=== PATIENT | female | born 1950 | race African-American/Black ===

== ENCOUNTER → 2017-08-16 | Outpatient (CLI) | payer MEDICARE ==
[2017-08-16 09:57] LABS: ABSOLUTE BASOPHILS # (AUTO) 0.1 10^3/uL (0.0-0.2); ABSOLUTE LYMPHOCYTES (AUTO) 1.4 10^3/uL (0.5-4.7); ABSOLUTE MONOCYTES (AUTO) 1.1 10^3/uL (0.1-1.4); ABSOLUTE NEUT (AUTO) 9.1 10^3/uL (1.7-8.2); BASOPHILS % (AUTO) 0.7 % (0-2); EOSINOPHILS % (AUTO) 0.4 % (0-6); HEMATOCRIT 26.8 % (36.0-47.0); HEMOGLOBIN 8.8 g/dL (12.0-15.5); LYMPHOCYTES % (AUTO) 12.2 % (13-45); MEAN CORPUSCULAR HEMOGLOBIN 26.2 pg (27.0-33.4); MEAN CORPUSCULAR HGB CONC 32.9 g/dL (32.0-36.0); MEAN CORPUSCULAR VOLUME 80 fl (80-97); MONOCYTES % (AUTO) 9.4 % (3-13); PLATELET COUNT 705 10^3/uL (150-450); RED BLOOD COUNT 3.36 10^6/uL (3.72-5.28); RED CELL DISTRIBUTION WIDTH 15.3 % (11.5-14.0); SEGMENTED NEUTROPHILS % (AUTO) 77.3 % (42-78); TOTAL CELLS COUNTED % (AUTO) 100 %; WHITE BLOOD COUNT 11.8 10^3/uL (4.0-10.5)
[2017-08-16 10:23] LABS: ALANINE AMINOTRANSFERASE 18 U/L (9-52); ALKALINE PHOSPHATASE 177 U/L (38-126); ANION GAP 11 (5-19); ASPARTATE AMINO TRANSFERASE 23 U/L (14-36); BILIRUBIN,DIRECT 0.4 mg/dL (0.0-0.4); BILIRUBIN,TOTAL 0.5 mg/dL (0.2-1.3); BLOOD UREA NITROGEN 27 mg/dL (7-20); CALCIUM 8.8 mg/dL (8.4-10.2); CARBON DIOXIDE 24 mmol/L (22-30); CHLORIDE 102 mmol/L (98-107); CHOLESTEROL 136.57 mg/dL (0-200); GLUCOSE 107 mg/dL (75-110); POTASSIUM 4.4 mmol/L (3.6-5.0); SODIUM 137.4 mmol/L (137-145); TOTAL PROTEIN 6.4 g/dL (6.3-8.2); TRIGLYCERIDES 180 mg/dL (<150)
[2017-08-16 10:34] LABS: DIRECT LDL 53 mg/dL (<100)
== END ==
LOC: OD 09:20
PROVIDERS: ATTEND Internal Medicine
DX: I10 Essential (primary) hypertension (principal); E78.00 Pure hypercholesterolemia, unspecified; Z79.899 Other long term (current) drug therapy
CPT/HCPCS: 36415; 80053; 80061; 85025

== ENCOUNTER → 2017-08-20 | Outpatient (CLI) | payer MEDICARE, OTHER ==
--- NOTE | 2017-08-21 09:00 | WOMENS IMAGING REPORT ---
EXAM DESCRIPTION: 3D DX MAMMO RIGHT UNILAT; U/S BREAST UNILAT LIMITED COMPLETED DATE/TIME: 08/20/2017 8:57 am; 08/20/2017 9:49 am REASON FOR STUDY: LEFT BREAST CANCER; RT BREAST NODULE N63.11 C50.912 MALIGNANT NEOPLASM OF UNSPEC IFIED SITE OF LEFT FEMAL COMPARISON: None. TECHNIQUE: Standard craniocaudal and mediolateral oblique images of the right breast recorded using digital acquisition and breast tomosynthesis. Right breast ultrasound was also performed. Left breast imaging was deferred by the referring surgeon who has already performed a left breast bio psy, yielding a diagnosis of malignancy. LIMITATIONS: None. FINDINGS: BREAST: Right MASSES: In the far upper outer quadrant right breast, a mammographic nodule is present adjacent to an upper outer quadrant artery. This measures about 8 mm in diameter with irregular margins. CALCIFICATIONS: No new or suspicious calcifications. ARCHITECTURAL DISTORTION: None. DEVELOPING DENSITY: None. ASYMMETRY: None noted. OTHER: No other significant findings. Read with the assistance of CAD. .[facility] - R2 Cenova Version 1.3 .[facility] - R2 Cenova Version 1.3 .[facility] - R2 Cenova Version 2.4 .[facility] - R2 Cenova Version 2.4 .COUNT INCLUDES THE [facility] - R2 Inspector Chief Version 9.2 Right breast ultrasound: Ultrasound of the right breast upper outer quadrant, 10 cm from the nipple in the area of mammographi c findings demonstrates a small solid nodule with irregular borders, mild acoustic absorption and int ernal color flow measuring about 9 mm in diameter. This is worrisome for malignancy. Ultrasound-zuleima ded core biopsy should be considered. IMPRESSION: 8 to 9 mm solid nodule far upper outer quadrant right breast worrisome for malignancy. Ultrasound-guided core biopsy should be considered. BREAST DENSITY: c. The breasts are heterogeneously dense, which may obscure small masses. BIRAD: 4 Suspicious. Biopsy should be considered. RECOMMENDATION: RECOMMENDED FOLLOW UP: Consider ultrasound-guided core biopsy with post biopsy clip placement and follow-up two-view mammogram SPECIFIC INTERVENTION/IMAGING/CONSULTATION RECOMMENDED:As above COMMUNICATION:Ordering physician notified of these findings COMMENT: The patient has been notified of the results by letter per MQSA requirements. Additional no tification policies are in place for contacting patient with suspicious or incomplete findings. Quality ID #[id number]: The [employer] recommends an annual screening mammogram for women aged 40 years or over. This facility utilizes a reminder system to ensure that all patients receive reminder letters, and/or direct phone calls for appointments. This includes reminders for routine scr eening mammograms, diagnostic mammograms, or other Breast Imaging Interventions when appropriate. Th is patient will be placed in the appropriate reminder system. The [employer] (ACR) has developed recommendations for screening MRI of the breast s in certain patient populations, to be used in conjunction with mammography. Breast MRI surveillanc e may be appropriate for women with more than 20% lifetime risk of developing breast cancer as deter mined by genetic testing, significant family history of the disease, or history of mantle radiation f or Hodgkins Disease. ACR Practice Guidelines 2008. DBT Technology DBT is a type of tomographic mammography. With conventional mammography, overlapping breast tissue ma y make lesions difficult to detect, even with good compression. DBT uses an x-ray tube that rotates a round the breast, taking images at different angles. These images are then combined to create thin sl ices of the breast that the radiologist can view as a 3D reconstruction. The Eviti unit can perform full-field digital mammograms (2D imaging); or DBT (3D imaging); or both, in a combination mode that quickly performs both the mammogram and the tomosynthesis scan while the breast is still compressed. PQRS 6045F: Fluoroscopic imaging is not utilized for breast tomosynthesis. TECHNICAL DOCUMENTATION: FINDING NUMBER: (1) ASSESSMENT: (1) JOB ID: [id number] [employer]- All Rights Reserved Reading location - IP/workstation name: [email or web address]-COUNT INCLUDES THE [facility]-RR
--- NOTE | 2017-08-21 09:00 | WOMENS IMAGING REPORT ---
EXAM DESCRIPTION: 3D DX MAMMO RIGHT UNILAT; U/S BREAST UNILAT LIMITED COMPLETED DATE/TIME: 08/20/2017 8:57 am; 08/20/2017 9:49 am REASON FOR STUDY: LEFT BREAST CANCER; RT BREAST NODULE N63.11 C50.912 MALIGNANT NEOPLASM OF UNSPEC IFIED SITE OF LEFT FEMAL COMPARISON: None. TECHNIQUE: Standard craniocaudal and mediolateral oblique images of the right breast recorded using digital acquisition and breast tomosynthesis. Right breast ultrasound was also performed. Left breast imaging was deferred by the referring surgeon who has already performed a left breast bio psy, yielding a diagnosis of malignancy. LIMITATIONS: None. FINDINGS: BREAST: Right MASSES: In the far upper outer quadrant right breast, a mammographic nodule is present adjacent to an upper outer quadrant artery. This measures about 8 mm in diameter with irregular margins. CALCIFICATIONS: No new or suspicious calcifications. ARCHITECTURAL DISTORTION: None. DEVELOPING DENSITY: None. ASYMMETRY: None noted. OTHER: No other significant findings. Read with the assistance of CAD. .[facility] - R2 Cenova Version 1.3 .[facility] Imaging - R2 Cenova Version 1.3 .[facility] - R2 Cenova Version 2.4 .[facility] - R2 Cenova Version 2.4 .[facility] - R2 Fashion Model Version 9.2 Right breast ultrasound: Ultrasound of the right breast upper outer quadrant, 10 cm from the nipple in the area of mammographi c findings demonstrates a small solid nodule with irregular borders, mild acoustic absorption and int ernal color flow measuring about 9 mm in diameter. This is worrisome for malignancy. Ultrasound-zuleima ded core biopsy should be considered. IMPRESSION: 8 to 9 mm solid nodule far upper outer quadrant right breast worrisome for malignancy. Ultrasound-guided core biopsy should be considered. BREAST DENSITY: c. The breasts are heterogeneously dense, which may obscure small masses. BIRAD: 4 Suspicious. Biopsy should be considered. RECOMMENDATION: RECOMMENDED FOLLOW UP: Consider ultrasound-guided core biopsy with post biopsy clip placement and follow-up two-view mammogram SPECIFIC INTERVENTION/IMAGING/CONSULTATION RECOMMENDED:As above COMMUNICATION:Ordering physician notified of these findings COMMENT: The patient has been notified of the results by letter per MQSA requirements. Additional no tification policies are in place for contacting patient with suspicious or incomplete findings. Quality ID #[id number]: The [employer] recommends an annual screening mammogram for women aged 40 years or over. This facility utilizes a reminder system to ensure that all patients receive reminder letters, and/or direct phone calls for appointments. This includes reminders for routine scr eening mammograms, diagnostic mammograms, or other Breast Imaging Interventions when appropriate. Th is patient will be placed in the appropriate reminder system. The [employer] (ACR) has developed recommendations for screening MRI of the breast s in certain patient populations, to be used in conjunction with mammography. Breast MRI surveillanc e may be appropriate for women with more than 20% lifetime risk of developing breast cancer as deter mined by genetic testing, significant family history of the disease, or history of mantle radiation f or Hodgkins Disease. ACR Practice Guidelines 2008. DBT Technology DBT is a type of tomographic mammography. With conventional mammography, overlapping breast tissue ma y make lesions difficult to detect, even with good compression. DBT uses an x-ray tube that rotates a round the breast, taking images at different angles. These images are then combined to create thin sl ices of the breast that the radiologist can view as a 3D reconstruction. The Fo[employer] unit can perform full-field digital mammograms (2D imaging); or DBT (3D imaging); or both, in a combination mode that quickly performs both the mammogram and the tomosynthesis scan while the breast is still compressed. PQRS 6045F: Fluoroscopic imaging is not utilized for breast tomosynthesis. TECHNICAL DOCUMENTATION: FINDING NUMBER: (1) ASSESSMENT: (1) JOB ID: [id number] [employer]- All Rights Reserved Reading location - IP/workstation name: [facility]-RR
== END ==
LOC: WI 08:25
PROVIDERS: ATTEND Surgery
DX: C50.912 Malignant neoplasm of unspecified site of left female breast (principal); N63.11 Unspecified lump in the right breast, upper outer quadrant
CPT/HCPCS: 88342 ×2; 88341 ×2; 88305 ×2; 76642; 77065; G0279

== ENCOUNTER 2017-08-30 13:30 | Inpatient (IN) | payer MEDICARE ==
[2017-08-30] MEDS ORDERED: ACETAMINOPHEN 325 MG TABLET PO ONE (13:55)
[2017-08-30] MEDS ORDERED: NORMAL SALINE 1000 ML 1,000 ML IV ONE (13:55)
[2017-08-30] MEDS ORDERED: PIPERACILLIN/TAZOBACTAM 4.5 GM VIAL IV ONE (13:55)
--- NOTE | 2017-08-30 14:26 | ER Document Report ---
ED Medical Screen (RME) - General Chief Complaint: Nausea/Vomiting Stated Complaint: POSSIBLE NAUSEA/ DIZZINESS Time Seen by Provider: 08/30/17 13:54 TRAVEL OUTSIDE OF THE [place] IN LAST 30 DAYS: No - HPI Patient complains to provider of: Generalized weakness, nausea and vomiting Notes: 08/30/17 14:25 Patient is a 66-year-old female presenting to the emergency room with family members for generalized weakness with nausea and vomiting, she is noted to be pale, diaphoretic and hypotensive in triage area, with strong infectious odor, therefore patient was taken immediately to a bed in the main emergency department RAPID MEDICAL EVALUATION DISCLOSURE I have seen this patient as part of a Rapid Medical Evaluation and, if applicable, placed any initially appropriate orders. The patient will be seen and fully evaluated, including a full history and physical exam, by a provider ( in Main ED or Fast Track) when a room becomes available. - Related Data Allergies/Adverse Reactions: almond Allergy (Verified 08/30/17 13:34) cashew nut Allergy (Verified 08/30/17 13:34) Past Medical History - Social History Chew tobacco use (# tins/day): No Drug Abuse: None Renal/ Medical History: Denies: Hx Peritoneal Dialysis Physical Exam - Vital signs Vitals: Resp Pulse Ox 20 94 08/30/17 14:06 08/30/17 14:06 Course - Vital Signs Vital signs: Temp Pulse Resp BP Pulse Ox 25 H 98/67 L 94 08/30/17 14:12 08/30/17 14:12 08/30/17 14:12 - Laboratory Result Diagrams: 08/30/17 14:08 08/30/17 14:08 Doctor's Discharge - Discharge Referrals: INDRA DENNY MD [Primary Care Provider] - Follow up as needed
[2017-08-30 14:41] LABS: VENOUS BLOOD HCO3 23.2 mmol/L (20-32); VENOUS BLOOD PCO2 42.1 mmHg (35-63); VENOUS BLOOD PH 7.36 (7.30-7.42)
[2017-08-30 14:46] LABS: INTERNATIONAL RATION (INR) 1.46; PROTHROMBIN TIME 18.4 SEC (11.4-15.4)
--- NOTE | 2017-08-30 14:47 | ER Document Report ---
ED General - General Chief Complaint: Nausea/Vomiting Stated Complaint: POSSIBLE NAUSEA/ DIZZINESS Time Seen by Provider: 08/30/17 13:54 TRAVEL OUTSIDE OF THE [place] 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 She reports landing on her left side. She states she slowly lowered herself to the ground. She has no hip or buttock pain. She was assisted up by her family and neighbor. She has had nausea, decreased appetite, constipation, and abdominal pain for the past several days. She vomits every couple of days for the past few weeks. She thinks abdominal pain worsened yesterday after drinking a banana shake with almonds. Last bowel movement about 1 week ago. She reports an allergy to almonds, but did not know that that it contained almonds. She has had no fever, but has had chills. She has not yet started chemotherapy or radiation. She is still in the staging process. Unknown if she has any metastases. She admits to ignoring the left breast deformity for several months prior to seeking treatment. She now has a necrotic left breast mass and has been to the wound care clinic twice. She also reports a decubitus ulcer. Denies any blood loss in the stools. She has a history of hypertension and was recently told to have her blood pressure medication. Initial blood pressure upon triage was 74/58 and then again 73/51 with a heart rate of 130. - Related Data Allergies/Adverse Reactions: almond Allergy (Verified 08/30/17 13:34) cashew nut Allergy (Verified 08/30/17 13:34) Past Medical History - Social History Smoking Status: Never Smoker Chew tobacco use (# tins/day): No Drug Abuse: None Family History: Reviewed & Not Pertinent Patient has suicidal ideation: No Patient has homicidal ideation: No - Past Medical History Cardiac Medical History: Reports: Hx Hypertension Renal/ Medical History: Denies: Hx Peritoneal Dialysis Malignancy Medical History: Reports: Hx Breast Cancer Review of Systems - Review of Systems Notes: REVIEW OF SYSTEMS: CONSTITUTIONAL: -fevers, +chills, fatigue, generalized weakness EENT: -eye pain, -difficulty swallowing, -nasal congestion CARDIOVASCULAR: -chest pain, -syncope. RESPIRATORY: -cough, -SOB GASTROINTESTINAL: +abdominal pain, +nausea, +vomiting, -diarrhea, + constipation , + decreased appetite GENITOURINARY: -dysuria, -hematuria MUSCULOSKELETAL: -back pain, -neck pain SKIN: + Left breasts necrosis HEMATOLOGIC: -easy bruising or bleeding. LYMPHATIC: -swollen, enlarged glands. NEUROLOGICAL: -altered mental status or loss of consciousness, -headache, - neurologic symptoms PSYCHIATRIC: -anxiety, -depression. Physical Exam - Vital signs Vitals: Temp 99.3 F 08/30/17 14:05 Interpretation: Hypotensive, Tachycardic - Notes Notes: PHYSICAL EXAMINATION: GENERAL: Ill-appearing, pale, appears older than stated age. HEAD: Atraumatic, normocephalic. EYES: Pupils equal round and reactive to light, extraocular movements intact, conjunctiva are pale. ENT: nares patent, oropharynx clear without exudates. Pale and dry mucous membranes. NECK: Normal range of motion, supple without lymphadenopathy LUNGS: Breath sounds clear to auscultation bilaterally and equal. No wheezes rales or rhonchi. CHEST: Peau d' orange left breast with foul odor, necrosis, deep ulceration and fissuring, purulent drainage HEART: Tachycardia, regular rhythm, no murmur ABDOMEN: Mild distention, tympanic, diffuse moderate tenderness, normoactive bowel sounds. Mild guarding, no rebound. No masses appreciated. EXTREMITIES: Normal range of motion, 1+ edema bilateral ankles. No cyanosis. No pain with range of motion right hip. No spinal tenderness. NEUROLOGICAL: Cranial nerves grossly intact. Normal speech, normal gait. Normal sensory and motor exams. PSYCH: Normal mood, normal affect. SKIN: Necrotic left breast as described, 2 small stage II sacral decubitus ulcers Course - Re-evaluation Re-evalutation: 08/30/17 15:06 Culture sent. Antibiotics initiated for possible sepsis. Fluids ordered. Stool for guaiac sent. No bright red blood seen on rectal exam. 08/30/17 15:11 Labs compared to prior labs from August 16. White blood cell count has increased from 11.8-19.2. Hemoglobin dropped from 8.8-7.6. BUN creatinine now elevated from 27 / 1.13 to 62/ 2.83. Lactic acid normal. Will continue IV hydration and antibiotics to cover Pseudomonas. CT ordered for abdominal pain, vomiting, constipation to evaluate possible obstruction. 08/30/17 17:10 Patient feeling better. Blood pressure now systolic 90s heart rate down to 115. Currently finishing third liter of fluids. CT does not support obstruction, otherwise shows nonspecific tumor related findings with ascites and pleural effusion. Discussed with hospitalist, , for admission. Patient updated. Will Place Gregory catheter as have not been able to obtain urine specimen at this time. Critical care time spent obtaining history from patient or surrogate, discussions with consultants, development of treatment plan with patient or surrogate, evaluation of patient's response to treatment, examination of patient , ordering and performing treatments and interventions, ordering and review of laboratory studies, re-evaluation of patient's condition, ordering and review of radiographic studies and review of old charts. - Vital Signs Vital signs: Temp Pulse Resp BP Pulse Ox 99.3 F 16 92/72 L 99 08/30/17 14:05 08/30/17 16:45 08/30/17 16:45 08/30/17 16:44 - Laboratory Result Diagrams: 08/30/17 14:08 08/30/17 14:08 Laboratory results interpreted by me: 08/30/17 08/30/17 08/30/17 14:08 14:08 14:08 WBC 19.2 H RBC 2.96 L Hgb 7.6 L Hct 23.7 L MCH 25.8 L RDW 16.1 H Plt Count 584 H Seg Neutrophils % 86.8 H Lymphocytes % 6.3 L Absolute Neutrophils 16.7 H PT 18.4 H Sodium 132.0 L Chloride 95 L BUN 62 H Creatinine 2.83 H Est GFR ( Amer) 20 L Est GFR (Non-Af Amer) 17 L Glucose 140 H Alkaline Phosphatase 173 H Total Protein 5.7 L Albumin 2.5 L Critical Care Note - Critical Care Note Total time excluding time spent on procedures (mins): 31 Discharge - Discharge Condition: Poor Disposition: ADMITTED INPATIENT Admitting Provider: Hospitalist Unit Admitted: ICU Referrals: INDRA DENNY MD [ACTIVE STAFF] - Follow up as needed
[2017-08-30 14:50] LABS: ABSOLUTE BASOPHILS # (AUTO) 0.1 10^3/uL (0.0-0.2); ABSOLUTE LYMPHOCYTES (AUTO) 1.2 10^3/uL (0.5-4.7); ABSOLUTE MONOCYTES (AUTO) 1.3 10^3/uL (0.1-1.4); ABSOLUTE NEUT (AUTO) 16.7 10^3/uL (1.7-8.2); BASOPHILS % (AUTO) 0.3 % (0-2); EOSINOPHILS % (AUTO) 0.1 % (0-6); HEMATOCRIT 23.7 % (36.0-47.0); LYMPHOCYTES % (AUTO) 6.3 % (13-45); MEAN CORPUSCULAR HEMOGLOBIN 25.8 pg (27.0-33.4); MEAN CORPUSCULAR HGB CONC 32.2 g/dL (32.0-36.0); MEAN CORPUSCULAR VOLUME 80 fl (80-97); MONOCYTES % (AUTO) 6.5 % (3-13); PLATELET COUNT 584 10^3/uL (150-450); RED BLOOD COUNT 2.96 10^6/uL (3.72-5.28); RED CELL DISTRIBUTION WIDTH 16.1 % (11.5-14.0); SEGMENTED NEUTROPHILS % (AUTO) 86.8 % (42-78); TOTAL CELLS COUNTED % (AUTO) 100 %; WHITE BLOOD COUNT 19.2 10^3/uL (4.0-10.5)
[2017-08-30 14:53] LABS: HEMOGLOBIN 7.6 g/dL (12.0-15.5)
[2017-08-30 15:02] LABS: ALANINE AMINOTRANSFERASE 23 U/L (9-52); ALBUMIN 2.5 g/dL (3.5-5.0); ALKALINE PHOSPHATASE 173 U/L (38-126); ANION GAP 15 (5-19); ASPARTATE AMINO TRANSFERASE 22 U/L (14-36); BILIRUBIN,DIRECT 0.3 mg/dL (0.0-0.4); BILIRUBIN,TOTAL 0.3 mg/dL (0.2-1.3); BLOOD UREA NITROGEN 62 mg/dL (7-20); CALCIUM 8.4 mg/dL (8.4-10.2); CARBON DIOXIDE 22 mmol/L (22-30); CHLORIDE 95 mmol/L (98-107); GLUCOSE 140 mg/dL (75-110); POTASSIUM 4.9 mmol/L (3.6-5.0); TOTAL PROTEIN 5.7 g/dL (6.3-8.2)
[2017-08-30] MEDS ORDERED: VANCOMYCIN HCL INJ 1000 MG VIAL IV ONE (15:08)
[2017-08-30] MEDS ORDERED: CIPROFLOXACIN 400 MG/D5W RTU 400 MG/200 ML RTUPB IV ONE (15:08)
[2017-08-30] MEDS ORDERED: RINGERS SOLUTION,LACTATED 1,000 ML IV ONE (15:11)
--- NOTE | 2017-08-30 15:28 | RADIOLOGY REPORT (SQ) ---
EXAM DESCRIPTION: CHEST SINGLE VIEW COMPLETED DATE/TIME: 08/30/2017 3:03 pm REASON FOR STUDY: FEVER COMPARISON: None. EXAM PARAMETERS: NUMBER OF VIEWS: One view. TECHNIQUE: Single frontal radiographic view of the chest acquired. RADIATION DOSE: NA LIMITATIONS: None. FINDINGS: LUNGS AND PLEURA: There is volume loss in the left lung with airspace opacities. Blunting of the left costophrenic angle is suggestive of a small pleural effusion. No pneumothorax. The rig ht lung is grossly clear. MEDIASTINUM AND HILAR STRUCTURES: Airspace opacities at the left perihilar region. HEART AND VASCULAR STRUCTURES: The heart is not enlarged. No overt vascular congestion. BONES: No acute findings. HARDWARE: None in the chest. IMPRESSION: 1. Volume loss in the left lung with airspace opacities, may be secondary to multifocal pneumonia or neoplasm. Clinical correlation and radiographic followup recommended. 2. Small left pleural effusion. TECHNICAL DOCUMENTATION: JOB ID: [id number] 2010 [employer]- All Rights Reserved Reading location - IP/workstation name: [email or web address]
--- NOTE | 2017-08-30 16:43 | RADIOLOGY REPORT (SQ) ---
EXAM DESCRIPTION: CT ABD/PELVIS NO ORAL OR IV COMPLETED DATE/TIME: 08/30/2017 4:26 pm REASON FOR STUDY: abd pain, vomiting COMPARISON: None. TECHNIQUE: CT scan of the abdomen and pelvis performed without intravenous or oral contrast. Images reviewed with lung, soft tissue, and bone windows. Reconstructed coronal and sagittal MPR images revi ewed. All images stored on PACS. All CT scanners at this facility use dose modulation, iterative reconstruction, and/or weight based d osing when appropriate to reduce radiation dose to as low as reasonably achievable (ALARA). [facility]: Dose Right [facility]: CareDose [facility]: Dose Right [facility]: Teradose 4D [facility]: Smart Technologies RADIATION DOSE: CT Rad equipment meets quality standard of care and radiation dose reduction techniq ues were employed. CTDIvol: 8.6 mGy. DLP: 469 mGy-cm.mGy. LIMITATIONS: None. FINDINGS: LOWER CHEST: See separate report of the CT of the chest. NON-CONTRASTED LIVER, SPLEEN, ADRENALS: Evaluation limited by lack of IV contrast. No identified sign ificant masses. PANCREAS: No masses. No peripancreatic inflammatory changes. GALLBLADDER: Gallstones. No inflammatory changes to suggest cholecystitis. RIGHT KIDNEY AND URETER: No suspicious masses. Assessment limited by lack of IV contrast. No signif icant calcifications. No hydronephrosis or hydroureter. LEFT KIDNEY AND URETER: No suspicious masses. Assessment limited by lack of IV contrast. No signifi cant calcifications. No hydronephrosis or hydroureter. AORTA AND RETROPERITONEUM: No aneurysm. No retroperitoneal masses or adenopathy. BOWEL AND PERITONEAL CAVITY: Small amount of ascites. No evidence of bowel obstruction. APPENDIX: Not visualized. PELVIS, BLADDER, AND ABDOMINAL WALL:Linear metallic density in the uterus, presumably fallopian tube closure device. Correlate with history. BONES: No significant findings. OTHER: No other significant finding. IMPRESSION: Mild ascites. Cholelithiasis. COMMENT: Quality ID # [id number]: Final reports with documentation of one or more dose reduction techniques (e.g., Automated exposure control, adjustment of the mA and/or kV according to patient size, use of iterative reconstruction technique) TECHNICAL DOCUMENTATION: JOB ID: [id number] [employer]- All Rights Reserved Reading location - IP/workstation name: [email or web address]
--- NOTE | 2017-08-30 16:54 | RADIOLOGY REPORT (SQ) ---
EXAM DESCRIPTION: CT CHEST WITHOUT COMPLETED DATE/TIME: 08/30/2017 4:26 pm REASON FOR STUDY: malignancy, hypotension . Known left breast malignancy. COMPARISON: CT abdomen and pelvis 08/30/2017. TECHNIQUE: CT scan performed of the chest without intravenous contrast. Images reviewed with lung, soft tissue and bone windows. Reconstructed coronal and sagittal MPR images reviewed. All images st ored on PACS. All CT scanners at this facility use dose modulation, iterative reconstruction, and/or weight based d osing when appropriate to reduce radiation dose to as low as reasonably achievable (ALARA). [facility]: Dose Right [facility]: CareDose [facility]: Dose Right [facility]: Teradose 4D [facility]: Smart [employer] RADIATION DOSE: CT Rad equipment meets quality standard of care and radiation dose reduction techniq ues were employed. CTDIvol: 9.9 mGy. DLP: 399 mGy-cm. mGy. LIMITATIONS: No technical limitations. Lack of intravenous contrast limits evaluation for masses and adenopathy. FINDINGS: LUNGS AND PLEURA: There is a small loculated left pleural effusion. Ill-defined soft tiss ue density along the medial aspect of the left upper lung measuring approximately in 8.2 x 4.3 cm. T here are areas of consolidation/atelectasis at the left upper lobe and left lower lobe. No pneumotho rax. Mild atelectasis at the right lung base. HILAR AND MEDIASTINAL STRUCTURES: Mediastinal adenopathy measuring 2.2 x 3.2 cm. Limited evaluation for hilar adenopathy in the absence of intravenous contrast. HEART AND VASCULAR STRUCTURES: No thoracic aortic aneurysm. The heart is mildly enlarged. There is trace pericardial effusion. UPPER ABDOMEN: See separate report of the CT of the abdomen. THYROID AND OTHER SOFT TISSUES: The visualized unenhanced thyroid gland is unremarkable. BONES: Multilevel degenerative changes are seen within the spine. HARDWARE: None in the chest. OTHER: Large soft tissue mass with gas foci at the left breast is measuring 12.5 x 7.4 cm. Satellite nodules at the inferior left breast are measuring 2.6 x 3.1 cm and 2.9 x 3.8 cm respectively. Left axillary adenopathy measuring up to 3.0 x 3.0 cm IMPRESSION: 1. Large soft tissue mass with gas foci at the left breast, probably corresponding to kn own malignancy, superimposed infection is not excludable. Satellite nodules at the left upper breast . Left axillary adenopathy, probably metastatic. Evaluation with PET/CT may be worthwhile. 2. Mediastinal adenopathy and ill defined soft tissue density at the left upper lobe, worrisome for m etastatic disease. Consolidation/atelectasis at the left upper and lower lobes.Small loculated left pleural effusion. 3. Mild cardiomegaly. Trace pericardial effusion. TECHNICAL DOCUMENTATION: JOB ID: [id number] [facility] Quality ID # [id number]: Final reports with documentation of one or more dose reduction techniques (e.g., Au tomated exposure control, adjustment of the mA and/or kV according to patient size, use of iterative reconstruction technique) 2010 [employer]- All Rights Reserved Reading location - IP/workstation name: [email or web address]
[2017-08-30] MEDS: RINGERS SOLUTION,LACTATED 1,000 ML IV PRN ×2 (17:26→17:27)
[2017-08-30] MEDS ORDERED: ONDANSETRON HCL INJ/PF 4 MG/2 ML SDV IV PRN (17:39)
[2017-08-30 17:40] LABS: PHOSPHORUS 5.5 mg/dL (2.5-4.5)
[2017-08-30 17:58] LABS: APPEARANCE,URINE CLOUDY; BILIRUBIN,URINE NEGATIVE (NEGATIVE); COLOR,URINE YELLOW; GLUCOSE, URINE NEGATIVE (NEGATIVE); KETONES,URINE NEGATIVE (NEGATIVE); LEUKOCYTE ESTERASE,URINE NEGATIVE (NEGATIVE); NITRITE,URINE NEGATIVE (NEGATIVE); PROTEIN,URINE NEGATIVE (NEGATIVE); URINE SPECIFIC GRAVITY 1.017; UROBILINOGEN,URINE NEGATIVE mg/dL (<2.0)
--- NOTE | 2017-08-30 18:17 | PDOC H&P ---
History of Present Illness Admission Date/PCP: FUNMI JUAREZ MD History of Present Illness: KENY PETERSON is a 66 year old female who fell at home. She had difficulty getting back up. She called EMS and was found to be significantly hypotensive. In the ED she has received 2 L IV fluids and continues to be severely hypotensive with a systolic blood pressure in the 70's. She is on her 3/6 liter of fluid. She has received IV cipro, zosyn, and vancomycin. The patient has a large necrotic, purulent, foul smelling, fungating left breast mass. She states that she had noticed a lump there for sometime, but that it became "bad" about 2 weeks ago. She states that she saw Dr. Mejia about this and he sent her to the wound clinic where she had a biopsy done. She has also had a CT of the right breast and there is suspicion of a mass on that side as well. She has an appointment to see Dr. Carrillo about this as well. She denies fevers or chills. She states that she hasn't been eating much due to loss of appetite. Past Medical History Cardiac Medical History: Reports: Coronary Artery Disease, Hypertension Pulmonary Medical History: Reports: None Neurological Medical History: Reports: None Endocrine Medical History: Reports: None Renal/ Medical History: Reports: None Malignancy Medical History: Reports: Breast Cancer - Likely bilateral. GI Medical History: Reports: None Social History Smoking Status: Never Smoker Frequency of Alcohol Use: Rare Family History Family History: Reviewed & Not Pertinent Parental Family History Reviewed: Yes Children Family History Reviewed: Yes Sibling(s) Family History Reviewed.: Yes Medication/Allergy Home Medications: Amlodipine Besylate [Norvasc 5 mg Tablet] 5 mg PO Q12 08/30/17 Clonidine HCl [Catapres 0.1 mg Tablet] 0.1 mg PO Q8 08/30/17 Lorazepam [Ativan 1 mg Tablet] 1 mg PO DAILYP PRN MDD 2 TABS 08/30/17 Tramadol HCl [Ultram 50 mg Tablet] 50 mg PO Q6HP PRN 08/30/17 Valsartan [Diovan 160 mg Tablet] 320 mg PO DAILY 08/30/17 Allergies/Adverse Reactions: almond Allergy (Verified 08/30/17 13:34) cashew nut Allergy (Verified 08/30/17 13:34) Review of Systems Constitutional: PRESENT: anorexia. ABSENT: chills, fever(s) Eyes: ABSENT: visual disturbances Ears: ABSENT: hearing changes Nose, Mouth, and Throat: ABSENT: headache(s), sore throat, vertigo Cardiovascular: PRESENT: dyspnea on exertion. ABSENT: chest pain, orthropnea, palpitations Respiratory: PRESENT: cough, dyspnea. ABSENT: sputum Gastrointestinal: PRESENT: constipation, diarrhea, nausea. ABSENT: abdominal pain, vomiting Genitourinary: ABSENT: dysuria Integumentary: PRESENT: lesions - Large fungating, purulent, necrotic mass on left breast. Neurological: PRESENT: frequent falls. ABSENT: confusion, dizziness, focal weakness, syncope Endocrine: ABSENT: cold intolerance, heat intolerance, polydipsia, polyphagia Hematologic/Lymphatic: ABSENT: easy bleeding, easy bruising Physical Exam Vital Signs: Temp Pulse Resp BP Pulse Ox 99.3 F 16 92/72 L 99 08/30/17 14:05 08/30/17 16:45 08/30/17 16:45 08/30/17 16:44 Intake & Output 08/29/17 08/30/17 08/31/17 06:59 06:59 06:59 Weight 69.9 kg General appearance: PRESENT: other - The patient appears acutely ill. Head exam: PRESENT: atraumatic, normocephalic Eye exam: PRESENT: EOMI, PERRLA, other - No scleral injection. ABSENT: scleral icterus Ear exam: PRESENT: other - Pinna normal. ABSENT: bleeding, drainage Mouth exam: PRESENT: moist, neck supple, tongue midline Throat exam: ABSENT: post pharyngeal erythema, tonsillar erythema, tonsillar exudate Neck exam: PRESENT: full ROM. ABSENT: JVD, lymphadenopathy, thyromegaly, tracheostomy Respiratory exam: PRESENT: other - Positive for incraesed work of breathing. No wheezes, rales, or rhonchi. No tactile fremitus. Cardiovascular exam: PRESENT: RRR, other - No lateral PMI. No thrills.. ABSENT : gallop, rubs, systolic murmur Pulses: PRESENT: normal carotid pulses, other - Diminished distal pulses. GI/Abdominal exam: PRESENT: normal bowel sounds, soft. ABSENT: hernia, mass, organolmegaly, tenderness Extremities exam: ABSENT: clubbing, tenderness, +1 edema Neurological exam: PRESENT: alert, awake, oriented to person, oriented to place , oriented to time, oriented to situation, CN II-XII grossly intact. ABSENT: motor sensory deficit Psychiatric exam: PRESENT: appropriate affect, normal mood Skin exam: PRESENT: other - Large necrotic, purulent, fungating left breast mass. Results Laboratory Results: 08/30/17 14:08 08/30/17 14:08 08/30/17 08/30/17 08/30/17 14:08 14:08 14:08 WBC 19.2 H RBC 2.96 L Hgb 7.6 L Hct 23.7 L MCV 80 MCH 25.8 L MCHC 32.2 RDW 16.1 H Plt Count 584 H Seg Neutrophils % 86.8 H Lymphocytes % 6.3 L Monocytes % 6.5 Eosinophils % 0.1 Basophils % 0.3 Absolute Neutrophils 16.7 H Absolute Lymphocytes 1.2 Absolute Monocytes 1.3 Absolute Eosinophils 0.0 Absolute Basophils 0.1 VBG pH VBG pCO2 VBG HCO3 VBG Base Excess Sodium 132.0 L Potassium 4.9 Chloride 95 L Carbon Dioxide 22 Anion Gap 15 BUN 62 H Creatinine 2.83 H Est GFR ( Amer) 20 L Est GFR (Non-Af Amer) 17 L Glucose 140 H Lactic Acid 1.3 Calcium 8.4 Phosphorus Magnesium Total Bilirubin 0.3 AST 22 ALT 23 Alkaline Phosphatase 173 H Total Protein 5.7 L Albumin 2.5 L Lipase Stool Occult Blood Blood Type Antibody Screen 08/30/17 08/30/17 08/30/17 14:08 14:08 14:08 WBC RBC Hgb Hct MCV MCH MCHC RDW Plt Count Seg Neutrophils % Lymphocytes % Monocytes % Eosinophils % Basophils % Absolute Neutrophils Absolute Lymphocytes Absolute Monocytes Absolute Eosinophils Absolute Basophils VBG pH 7.36 VBG pCO2 42.1 VBG HCO3 23.2 VBG Base Excess -2.0 Sodium Potassium Chloride Carbon Dioxide Anion Gap BUN Creatinine Est GFR ( Amer) Est GFR (Non-Af Amer) Glucose Lactic Acid Calcium Phosphorus 5.5 H Magnesium 2.2 Total Bilirubin AST ALT Alkaline Phosphatase Total Protein Albumin Lipase 209.9 Stool Occult Blood Blood Type Antibody Screen 08/30/17 08/30/17 14:28 15:44 WBC RBC Hgb Hct MCV MCH MCHC RDW Plt Count Seg Neutrophils % Lymphocytes % Monocytes % Eosinophils % Basophils % Absolute Neutrophils Absolute Lymphocytes Absolute Monocytes Absolute Eosinophils Absolute Basophils VBG pH VBG pCO2 VBG HCO3 VBG Base Excess Sodium Potassium Chloride Carbon Dioxide Anion Gap BUN Creatinine Est GFR ( Amer) Est GFR (Non-Af Amer) Glucose Lactic Acid Calcium Phosphorus Magnesium Total Bilirubin AST ALT Alkaline Phosphatase Total Protein Albumin Lipase Stool Occult Blood NEGATIVE Blood Type O NEGATIVE Antibody Screen NEGATIVE 08/30/17 14:08 Troponin I < 0.012 Impressions: Chest X-Ray 08/30/17 13:55 IMPRESSION: 1. Volume loss in the left lung with airspace opacities, may be secondary to multifocal pneumonia or neoplasm. Clinical correlation and radiographic followup recommended. 2. Small left pleural effusion. Abdomen/Pelvis CT 08/30/17 14:27 IMPRESSION: Mild ascites. Cholelithiasis. Chest CT 08/30/17 16:17 IMPRESSION: 1. Large soft tissue mass with gas foci at the left breast, probably corresponding to known malignancy, superimposed infection is not excludable. Satellite nodules at the left upper breast. Left axillary adenopathy, probably metastatic. Evaluation with PET/CT may be worthwhile. 2. Mediastinal adenopathy and ill defined soft tissue density at the left upper lobe, worrisome for metastatic disease. Consolidation/atelectasis at the left upper and lower lobes.Small loculated left pleural effusion. 3. Mild cardiomegaly. Trace pericardial effusion. Assessment & Plan - Diagnosis (1) Breast mass, left Is this a current diagnosis for this admission?: Yes Plan: The patient will be admitted and placed on IV zosyn, vancomycin, and cipro. General surgery will be consulted in the morning as will oncology. (3) Hypotension Qualifiers: Hypotension type: other hypotension type Qualified Code(s): I95.89 - Other hypotension Is this a current diagnosis for this admission?: Yes Plan: Aggressive IV fluid resuscitation, may need pressors. (4) Mass of left lung Is this a current diagnosis for this admission?: Yes Plan: Likely a metastasis. (5) Pneumonia Qualifiers: Laterality: left Lung location: unspecified part of lung Plan: Left upper and lower lobe consolidates. - Time Time Spent: Greater than 70 Minutes Medications reviewed and adjusted accordingly: Yes
[2017-08-30] MEDS: ALBUTEROL SULFATE 0.042% NEB (1.25 MG/3 ML) AMPUL NEB SCH (19:51)
[2017-08-30] MEDS ORDERED: NOREPINEPHRINE BITARTRATE INJ/PF 4 MG/4 ML SDV IV ONE (20:10)
[2017-08-30] MEDS: DEXTROSE 5%-WATER 250 ML with NOREPINEPHRINE BITARTRATE 4 MG IV PRN ×2 (20:17)
--- NOTE | 2017-08-30 22:11 | EKG REPORT ---
SEVERITY:- ABNORMAL ECG - SINUS TACHYCARDIA FIRST DEGREE AV BLOCK INCOMPLETE RIGHT BUNDLE BRANCH BLOCK LOW VOLTAGE THROUGHOUT : Confirmed by: Efren Victoria 30-Aug-2017 22:10:31
[2017-08-30] MEDS: CIPROFLOXACIN 400 MG/D5W RTU 400 MG/200 ML RTUPB IV SCH (22:17)
[2017-08-31] MEDS: ALBUTEROL SULFATE 0.042% NEB (1.25 MG/3 ML) AMPUL NEB SCH ×4 (01:18→21:03)
[2017-08-31] MEDS: PIPERACILLIN SODIUM/TAZOBACTAM 3.375 GM in NORMAL SALINE 100 ML IV SCH ×5 (01:24→23:57)
[2017-08-31] MEDS: DEXTROSE 5%-WATER 250 ML with NOREPINEPHRINE BITARTRATE 4 MG IV PRN ×6 (04:18→23:58)
[2017-08-31] MEDS: NORMAL SALINE 1000 ML 1,000 ML IV PRN ×2 (06:19→16:00)
[2017-08-31 08:16] LABS: HEMATOCRIT 21.4 % (36.0-47.0); MEAN CORPUSCULAR HEMOGLOBIN 26.4 pg (27.0-33.4); MEAN CORPUSCULAR HGB CONC 32.9 g/dL (32.0-36.0); MEAN CORPUSCULAR VOLUME 80 fl (80-97); PLATELET COUNT 514 10^3/uL (150-450); RED BLOOD COUNT 2.67 10^6/uL (3.72-5.28); WHITE BLOOD COUNT 15.5 10^3/uL (4.0-10.5)
[2017-08-31 08:29] LABS: ALANINE AMINOTRANSFERASE 23 U/L (9-52); ALBUMIN 2.3 g/dL (3.5-5.0); ALKALINE PHOSPHATASE 172 U/L (38-126); ANION GAP 11 (5-19); ASPARTATE AMINO TRANSFERASE 29 U/L (14-36); BILIRUBIN,DIRECT 0.4 mg/dL (0.0-0.4); BILIRUBIN,TOTAL 0.6 mg/dL (0.2-1.3); BLOOD UREA NITROGEN 49 mg/dL (7-20); CALCIUM 7.9 mg/dL (8.4-10.2); CARBON DIOXIDE 21 mmol/L (22-30); CHLORIDE 99 mmol/L (98-107); GLUCOSE 118 mg/dL (75-110); POTASSIUM 4.3 mmol/L (3.6-5.0); TOTAL PROTEIN 5.5 g/dL (6.3-8.2)
[2017-08-31 08:35] LABS: ABSOLUTE LYMPHOCYTES# (MANUAL) 1.2 10^3/uL (0.5-4.7); ABSOLUTE MONOCYTES # (MANUAL) 0.9 10^3/uL (0.1-1.4); ABSOLUTE NEUTROPHILS# (MANUAL) 13.3 10^3/uL (1.7-8.2); BASOPHILS % (MANUAL) 0 % (0-2); EOSINOPHILS % (MANUAL) 0 % (0-6); LYMPHOCYTES % (MANUAL) 8 % (13-45); MONOCYTES % (MANUAL) 6 % (3-13); SEGMENTED NEUTROPHILS % (MAN) 86 % (42-78); TOTAL CELLS COUNTED 100
[2017-08-31 08:36] LABS: ANISOCYTOSIS 1+; HYPOCHROMASIA SLIGHT; PLATELET CLUMPS PRESENT; PLATELET COMMENT INCREASED
[2017-08-31] MEDS ORDERED: NORMAL SALINE 250 ML IV PRN ×2 (08:50)
--- NOTE | 2017-08-31 09:21 | PDOC PROGRESS REPORT ---
Subjective Progress Note for:: 08/31/17 Subjective:: Patient is seen resting in bed. She is awake and alert. She is oriented to place and person. She denies any shortness of breath or dyspnea at rest. She appears slightly tachypneic at rest. She denies any chest pain or chest wall pain. She denies any nausea, vomiting or abdominal pain. She denies any diarrhea. She denies any arthralgias or myalgias. Remaining review of systems are negative. There is presently no family at the bedside. Reason For Visit: SEPSIS,NECROTIC,FUNGATING, AND INFECTED LEFT BREAS Physical Exam Vital Signs: Temp Pulse Resp BP Pulse Ox 98.6 F 109 H 16 103/79 97 08/31/17 08:00 08/31/17 08:00 08/31/17 08:00 08/31/17 08:00 08/31/17 08:00 Intake & Output 08/30/17 08/31/17 09/01/17 06:59 06:59 06:59 Output Total 400 75 Balance -400 -75 Weight 74 kg General appearance: PRESENT: no acute distress, well-developed, well-nourished Head exam: PRESENT: atraumatic, normocephalic Eye exam: PRESENT: conjunctiva pink, EOMI, PERRLA. ABSENT: scleral icterus Ear exam: PRESENT: normal external ear exam Mouth exam: PRESENT: moist, tongue midline Neck exam: ABSENT: carotid bruit, JVD, lymphadenopathy, thyromegaly Respiratory exam: PRESENT: clear to auscultation luke, decreased breath sounds, symmetrical, tachypnea Cardiovascular exam: PRESENT: +S1, +S2, tachycardia Pulses: PRESENT: normal carotid pulses, normal radial pulses Vascular exam: PRESENT: normal capillary refill GI/Abdominal exam: PRESENT: normal bowel sounds, soft Rectal exam: PRESENT: deferred Extremities exam: PRESENT: +2 edema - left upper arm Musculoskeletal exam: PRESENT: full ROM, tenderness - left chest wall Neurological exam: PRESENT: alert, awake, oriented to person, oriented to place , CN II-XII grossly intact. ABSENT: motor sensory deficit Psychiatric exam: PRESENT: anxious Skin exam: PRESENT: dry, warm, other - large dressing covering foul smelling left necrotic breast Results Laboratory Results: 08/31/17 07:43 08/31/17 07:43 08/31/17 08/31/17 07:43 07:43 WBC 15.5 H RBC 2.67 L Hgb 7.0 L Hct 21.4 L MCV 80 MCH 26.4 L MCHC 32.9 RDW 16.0 H Plt Count 514 H Seg Neutrophils % Not Reportable Lymphocytes % Not Reportable Monocytes % Not Reportable Eosinophils % Not Reportable Basophils % Not Reportable Absolute Neutrophils Not Reportable Absolute Lymphocytes Not Reportable Absolute Monocytes Not Reportable Absolute Eosinophils Not Reportable Absolute Basophils Not Reportable Sodium 131.0 L Potassium 4.3 Chloride 99 Carbon Dioxide 21 L Anion Gap 11 BUN 49 H Creatinine 2.01 H Est GFR ( Amer) 30 L Est GFR (Non-Af Amer) 25 L Glucose 118 H Calcium 7.9 L Total Bilirubin 0.6 AST 29 ALT 23 Alkaline Phosphatase 172 H Total Protein 5.5 L Albumin 2.3 L 08/31/17 08/31/17 01:15 07:43 Troponin I < 0.012 0.012 Impressions: Chest X-Ray 08/30/17 13:55 IMPRESSION: 1. Volume loss in the left lung with airspace opacities, may be secondary to multifocal pneumonia or neoplasm. Clinical correlation and radiographic followup recommended. 2. Small left pleural effusion. Abdomen/Pelvis CT 08/30/17 14:27 IMPRESSION: Mild ascites. Cholelithiasis. Chest CT 08/30/17 16:17 IMPRESSION: 1. Large soft tissue mass with gas foci at the left breast, probably corresponding to known malignancy, superimposed infection is not excludable. Satellite nodules at the left upper breast. Left axillary adenopathy, probably metastatic. Evaluation with PET/CT may be worthwhile. 2. Mediastinal adenopathy and ill defined soft tissue density at the left upper lobe, worrisome for metastatic disease. Consolidation/atelectasis at the left upper and lower lobes.Small loculated left pleural effusion. 3. Mild cardiomegaly. Trace pericardial effusion. Assessment & Plan - Diagnosis (1) Septic shock Is this a current diagnosis for this admission?: Yes Plan: Likely left breast wound is source of infection. Continue broad spectrum antibiotics pending cultures. Patient is presently on levophed at 8mcg/h to keep systolic BP > 100 mm hg (2) Breast, fat necrosis Is this a current diagnosis for this admission?: Yes Plan: Large left breast mass, biopsy positive for breast cancer. Foul smelling. Likely source of sepsis. Will ask surgery to see patient. She has been seen by Dr Mejia prior (3) CHANA (acute kidney injury) Is this a current diagnosis for this admission?: Yes Plan: Slowly improving with hydration will avoid nephrotoxic medications and dosages (4) Anemia Qualifiers: Chronic kidney disease stage: stage 3 (moderate) Is this a current diagnosis for this admission?: Yes Plan: Transfuse 2 units of PRBCs. Monitor (5) Breast cancer Qualifiers: Laterality: left Is this a current diagnosis for this admission?: Yes Plan: Consult oncology (6) Hyponatremia Is this a current diagnosis for this admission?: Yes Plan: Has not improved with hydration. Will send urine and serum os. May be secondary to neoplastic syndrome (7) Mass of left lung Is this a current diagnosis for this admission?: Yes Plan: Patient has large mass in left lung concerning for metastasis. Questionable infiltrate versus atelectasis, or metastasis in left lower lobe. She has no cough, or sputum production. - Time Time Spent with patient: 35 or more minutes Total Critical Time (Minutes): 25 Medications reviewed and adjusted accordingly: Yes - Inpatient Certification Based on my medical assessment, after consideration of the patient's comorbidities, presenting symptoms, or acuity I expect that the services needed warrant INPATIENT care.: Yes I certify that my determination is in accordance with my understanding of Medicare's requirements for reasonable and necessary INPATIENT services [42 CFR 412.3e].: Yes Medical Necessity: Need For IV Fluids, Need For Continuous Telemetry Monitoring , Need for IV Antibiotics, Need for Surgery, Risk of Complication if Not Cared For in Hospital
[2017-08-31] MEDS: ASPIRIN 81 MG TABLET, ENT COATED PO SCH (09:42)
[2017-08-31] MEDS: CIPROFLOXACIN 400 MG/D5W RTU 400 MG/200 ML RTUPB IV SCH ×2 (09:42→22:31)
[2017-08-31] MEDS ORDERED: ENOXAPARIN SODIUM INJ 40 MG/0.4 ML DISP.SYRIN SUBCUT SCH (10:00)
[2017-08-31] MEDS: ENOXAPARIN SODIUM INJ 30 MG/0.3 ML DISP.SYRIN SUBCUT SCH (10:01)
[2017-08-31] MEDS: VALPROATE SODIUM 1,000 MG in NORMAL SALINE 100 ML IV SCH (10:01)
--- NOTE | 2017-08-31 11:27 | PDOC CONSULTATION ---
Consultation Consult Date: 08/31/17 Consult reason:: Hematology/Oncology consultation was requested for patient with newly diagnosed breast cancer. 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 Work-up to begin treatment was in process when patient presented to the ED with complaints of weakness, nausea, and dyspnea. She was found to have hypotension, anemia, acute renal insufficiency, and probable sepsis from her infected breast wound. Patient states that this breast mass came on very suddenly over the past 6 weeks. Biopsy was obtained by Dr. Mejia but plan was to complete staging and hopefully be able to begin chemotherapy. She has also been seen by wound clinic due to the open, infectious nature of the breast mass. She was started on IV antibiotics. CT chest/Abdomen/Pelvis without contrast was obtained which shows probable lung metastases. Past Medical History Cardiac Medical History: Reports: Coronary Artery Disease, Hypertension Pulmonary Medical History: Reports: None Neurological Medical History: Reports: None Endocrine Medical History: Reports: None Renal/ Medical History: Reports: None Malignancy Medical History: Reports: Breast Cancer - Likely bilateral. GI Medical History: Reports: None Social History Occupation: She is and lives with her . Smoking Status: Former Smoker Number of Years Smokin Last Time Smoked: 2007 Frequency of Alcohol Use: Occasional Hx Recreational Drug Use: No Hx Prescription Drug Abuse: No - Advance Directive Resuscitation Status: Full Code Family History Family History: Reviewed & Not Pertinent Parental Family History Reviewed: Yes Children Family History Reviewed: Yes Sibling(s) Family History Reviewed.: Yes Medication/Allergy Home Medications: Amlodipine Besylate [Norvasc 5 mg Tablet] 5 mg PO Q12 08/30/17 Aspirin [Aspirin EC] 81 mg PO DAILY 08/30/17 Clonidine HCl [Catapres 0.1 mg Tablet] 0.1 mg PO Q8 08/30/17 Lorazepam [Ativan 1 mg Tablet] 1 mg PO DAILYP PRN MDD 2 TABS 08/30/17 Tramadol HCl [Ultram 50 mg Tablet] 50 mg PO Q6HP PRN 08/30/17 Valsartan [Diovan 160 mg Tablet] 320 mg PO DAILY 07/20/18 Allergies/Adverse Reactions: almond Allergy (Verified 08/30/17 13:34) cashew nut Allergy (Verified 08/30/17 13:34) Review of Systems Constitutional: PRESENT: weakness. ABSENT: fever(s) Eyes: ABSENT: visual disturbances Ears: ABSENT: hearing changes Nose, Mouth, and Throat: ABSENT: sore throat Cardiovascular: PRESENT: dyspnea on exertion Respiratory: PRESENT: dyspnea Gastrointestinal: PRESENT: abdominal pain, nausea Genitourinary: ABSENT: difficulty urinating Musculoskeletal: PRESENT: muscle weakness Integumentary: ABSENT: rash Neurological: PRESENT: frequent falls, weakness Psychiatric: ABSENT: anxiety, depression Hematologic/Lymphatic: ABSENT: lymphadenopathy Physical Exam Vital Signs: Temp Pulse Resp BP Pulse Ox 98.8 F 120 H 19 94/70 L 100 08/31/17 10:00 08/31/17 10:00 08/31/17 10:15 08/31/17 10:09 08/31/17 10:00 Intake & Output 08/30/17 08/31/17 09/01/17 06:59 06:59 06:59 Output Total 400 200 Balance -400 -200 Weight 74 kg General appearance: PRESENT: mild distress Exam: Well nourished, female sitting up in bed. Obviously dyspnic without exertion. Head exam: PRESENT: normocephalic Eye exam: PRESENT: PERRLA Ear exam: PRESENT: normal external ear exam Mouth exam: PRESENT: tongue midline Neck exam: ABSENT: lymphadenopathy, tenderness Respiratory exam: PRESENT: other - Dyspnic but clear to auscultation bilaterally. Cardiovascular exam: PRESENT: RRR, tachycardia GI/Abdominal exam: PRESENT: firm, tenderness Extremities exam: ABSENT: pedal edema Musculoskeletal exam: ABSENT: deformity Neurological exam: PRESENT: alert, awake Psychiatric exam: PRESENT: appropriate affect Focused psych exam: ABSENT: restlessness Skin exam: PRESENT: other - Left breast entirely replaced with large, ulcerative mass. Foul odor with purulent discharge. Results Laboratory Results: 08/31/17 07:43 08/31/17 07:43 08/31/17 08/31/17 07:43 07:43 WBC 15.5 H RBC 2.67 L Hgb 7.0 L Hct 21.4 L MCV 80 MCH 26.4 L MCHC 32.9 RDW 16.0 H Plt Count 514 H Seg Neutrophils % Not Reportable Lymphocytes % Not Reportable Monocytes % Not Reportable Eosinophils % Not Reportable Basophils % Not Reportable Absolute Neutrophils Not Reportable Absolute Lymphocytes Not Reportable Absolute Monocytes Not Reportable Absolute Eosinophils Not Reportable Absolute Basophils Not Reportable Sodium 131.0 L Potassium 4.3 Chloride 99 Carbon Dioxide 21 L Anion Gap 11 BUN 49 H Creatinine 2.01 H Est GFR ( Amer) 30 L Est GFR (Non-Af Amer) 25 L Glucose 118 H Calcium 7.9 L Total Bilirubin 0.6 AST 29 ALT 23 Alkaline Phosphatase 172 H Total Protein 5.5 L Albumin 2.3 L 08/31/17 08/31/17 01:15 07:43 Troponin I < 0.012 0.012 Impressions: Chest X-Ray 08/30/17 13:55 IMPRESSION: 1. Volume loss in the left lung with airspace opacities, may be secondary to multifocal pneumonia or neoplasm. Clinical correlation and radiographic followup recommended. 2. Small left pleural effusion. Abdomen/Pelvis CT 08/30/17 14:27 IMPRESSION: Mild ascites. Cholelithiasis. Chest CT 08/30/17 16:17 IMPRESSION: 1. Large soft tissue mass with gas foci at the left breast, probably corresponding to known malignancy, superimposed infection is not excludable. Satellite nodules at the left upper breast. Left axillary adenopathy, probably metastatic. Evaluation with PET/CT may be worthwhile. 2. Mediastinal adenopathy and ill defined soft tissue density at the left upper lobe, worrisome for metastatic disease. Consolidation/atelectasis at the left upper and lower lobes.Small loculated left pleural effusion. 3. Mild cardiomegaly. Trace pericardial effusion. Status: Image reviewed by me Assessment & Plan - Diagnosis (1) Breast cancer Qualifiers: Laterality: left Is this a current diagnosis for this admission?: Yes Plan: This is a Stage IV, inflammatory, ER-WA-Her2+ Very aggressive breast cancer. I have discussed this in detail with the patient and her . I have voiced my concerns that this is not curable, but may be treatable with aggressive chemotherapy and Her2 targeted agents. However, she needs to be a bit stronger and infections must be controlled before it will be safe to begin chemotherapy. I am not sure if she will ever get to that point. Although palliative treatment only has been discussed, has expressed patient's desire to try treatment if at all possible. (2) Anemia Qualifiers: Chronic kidney disease stage: stage 3 (moderate) Is this a current diagnosis for this admission?: Yes Plan: This is multifactoral, including anemia of renal disease. pRBC transfusion has been ordered. I agree. Would prefer for her HGB to be closer to 10 to help her cardiac function. She will need Echocardiogram or MUGA scan to evaluate LVEF prior to chemo. (3) Septic shock Is this a current diagnosis for this admission?: Yes Plan: On appropriate abtibiotics. Currently remains on pressors as well. - Plan Summary Plan Summary: Currently no evidence of bleeding, so anticoagulation for DVT prophylaxis should be safe as long as PLT >50. She is at high risk for DVT/PE. Her case was discussed with Dr. Mejia.
[2017-08-31] MEDS ORDERED: FUROSEMIDE INJ/PF 40 MG/4 ML SDV ONE (18:39)
--- NOTE | 2017-08-31 18:44 | RADIOLOGY REPORT (SQ) ---
EXAM DESCRIPTION: CHEST SINGLE VIEW COMPLETED DATE/TIME: 08/31/2017 6:22 pm REASON FOR STUDY: Central Line Placement COMPARISON: Chest x-ray 08/30/2017. CT chest 08/30/2017. EXAM PARAMETERS: NUMBER OF VIEWS: One view. TECHNIQUE: Single frontal radiographic view of the chest acquired. RADIATION DOSE: NA LIMITATIONS: None. FINDINGS: LUNGS AND PLEURA: Worsening airspace disease at the left lung with almost complete opacifi cation of the left hemithorax. The right lung is grossly clear. No pneumothorax. MEDIASTINUM AND HILAR STRUCTURES: Obscured. HEART AND VASCULAR STRUCTURES: The cardiac silhouette is obscured. BONES: No acute findings. HARDWARE: Right-sided central line with the tip overlying the atriocaval junction. IMPRESSION: 1. Worsening airspace disease at the left lung with almost complete opacification of t he left hemithorax. 2. No pneumothorax status post central line placement. TECHNICAL DOCUMENTATION: JOB ID: [id number] [employer]- All Rights Reserved Reading location - IP/workstation name: [email or web address]
[2017-08-31] MEDS: MORPHINE SULFATE 10 MG/ML INJ IV PRN ×2 (19:07→23:58)
--- NOTE | 2017-08-31 19:55 | OPERATIVE REPORT E ---
Operative Report NAME: KENY PETERSON : 1950 AGE: 66Y DATE OF SURGERY: 08/31/2017 ROOM: 611 PREOPERATIVE DIAGNOSIS: POOR PERIPHERAL VEINS FOR IV ACCESS AND PATIENT NEEDED PRESSOR. POSTOPERATIVE DIAGNOSIS: POOR PERIPHERAL VEINS FOR IV ACCESS AND PATIENT NEEDED PRESSOR. PROCEDURE: Placement of right subclavian triple-lumen catheter. SURGEON: CONSTANTINE DE LA O M.D. ANESTHESIA: Local. INDICATIONS: This is a 66-year-old female who needed IV medications and now pressors. She has poor veins in the peripheral arms. DESCRIPTION OF PROCEDURE: The patient was placed in slight Trendelenburg position and the right chest and neck were then prepped and draped in the usual sterile fashion. Local anesthesia infiltrated the right infraclavicular area and the right subclavian vein punctured and guidewire passed through the needle towards the area of the superior vena cava. The needle was removed and the puncture site dilated. A triple-lumen catheter inserted through the guidewire up to a distance of about 15 cm. The catheter was anchored to the skin with 3-0 silk. Out of 3 ports aspirated blood easily and instilled saline easily. Biopatch placed over the insertion site and a transparent sterile dressing placed over the Biopatch and catheter. The patient tolerated the procedure well. A chest x-ray will be obtained for placement. DICTATING PHYSICIAN: CONSTANTINE DE LA O M.D. [id number] PHY#: [id number] ID: [id number] JOB#: [id number] ACCT: [id number] cc:CONSTANTINE DE LA O M.D. >
[2017-09-01] MEDS: ALBUTEROL SULFATE 0.042% NEB (1.25 MG/3 ML) AMPUL NEB SCH ×4 (02:55→20:05)
[2017-09-01] MEDS: NORMAL SALINE 1000 ML 1,000 ML IV PRN (03:40)
[2017-09-01] MEDS: PIPERACILLIN SODIUM/TAZOBACTAM 3.375 GM in NORMAL SALINE 100 ML IV SCH ×3 (06:23→18:56)
[2017-09-01 07:00] LABS: ABSOLUTE EOSINOPHILS # (AUTO) 0.1 10^3/uL (0.0-0.6); ABSOLUTE LYMPHOCYTES (AUTO) 1.1 10^3/uL (0.5-4.7); BASOPHILS % (AUTO) 0.1 % (0-2); EOSINOPHILS % (AUTO) 0.4 % (0-6); HEMATOCRIT 28.2 % (36.0-47.0); LYMPHOCYTES % (AUTO) 6.9 % (13-45); MEAN CORPUSCULAR HEMOGLOBIN 26.9 pg (27.0-33.4); MEAN CORPUSCULAR HGB CONC 33.1 g/dL (32.0-36.0); MEAN CORPUSCULAR VOLUME 81 fl (80-97); MONOCYTES % (AUTO) 12.1 % (3-13); PLATELET COUNT 432 10^3/uL (150-450); RED BLOOD COUNT 3.47 10^6/uL (3.72-5.28); RED CELL DISTRIBUTION WIDTH 15.8 % (11.5-14.0); SEGMENTED NEUTROPHILS % (AUTO) 80.5 % (42-78); TOTAL CELLS COUNTED % (AUTO) 100 %; WHITE BLOOD COUNT 16.1 10^3/uL (4.0-10.5)
[2017-09-01 07:05] LABS: HEMOGLOBIN 9.3 g/dL (12.0-15.5)
[2017-09-01 07:08] LABS: ALANINE AMINOTRANSFERASE 19 U/L (9-52); ALBUMIN 2.1 g/dL (3.5-5.0); ALKALINE PHOSPHATASE 148 U/L (38-126); ANION GAP 12 (5-19); ASPARTATE AMINO TRANSFERASE 22 U/L (14-36); BILIRUBIN,DIRECT 0.3 mg/dL (0.0-0.4); BILIRUBIN,TOTAL 0.5 mg/dL (0.2-1.3); BLOOD UREA NITROGEN 34 mg/dL (7-20); CALCIUM 7.6 mg/dL (8.4-10.2); CARBON DIOXIDE 19 mmol/L (22-30); CHLORIDE 102 mmol/L (98-107); GLUCOSE 123 mg/dL (75-110); SODIUM 133.2 mmol/L (137-145); TOTAL PROTEIN 5.1 g/dL (6.3-8.2)
[2017-09-01] MEDS: MORPHINE SULFATE 10 MG/ML INJ IV PRN ×2 (08:53→19:28)
[2017-09-01] MEDS: ASPIRIN 81 MG TABLET, ENT COATED PO SCH (08:53)
[2017-09-01] MEDS: VALPROATE SODIUM 1,000 MG in NORMAL SALINE 100 ML IV SCH (08:54)
[2017-09-01] MEDS: ENOXAPARIN SODIUM INJ 30 MG/0.3 ML DISP.SYRIN SUBCUT SCH (08:55)
[2017-09-01] MEDS: CIPROFLOXACIN 400 MG/D5W RTU 400 MG/200 ML RTUPB IV SCH ×2 (08:55→22:48)
--- NOTE | 2017-09-01 09:03 | PDOC PROGRESS REPORT ---
Subjective Progress Note for:: 09/01/17 Subjective:: Patient is seen resting in bed. She is awake, alert and oriented x 3. She denies any shortness of breath or dyspnea at rest. She denies any cough. She denies any chest pain. She is having some discomfort in the left breast. She denies any nausea, vomiting or abdominal pain. She denies any diarrhea. She denies any arthralgias or myalgias. Remaining review of systems are negative. Her daughter is at the bedside. Reason For Visit: SEPSIS,NECROTIC,FUNGATING, AND INFECTED LEFT BREAS Physical Exam Vital Signs: Temp Pulse Resp BP Pulse Ox 97.9 F 135 H 18 105/81 100 09/01/17 08:00 09/01/17 08:35 09/01/17 08:35 09/01/17 08:00 09/01/17 08:35 Intake & Output 08/31/17 09/01/17 09/02/17 06:59 06:59 06:59 Intake Total 700 Output Total 400 1415 325 Balance -400 -715 -325 Weight 74 kg 78.7 kg General appearance: PRESENT: no acute distress, well-developed, well-nourished Head exam: PRESENT: atraumatic, normocephalic Eye exam: PRESENT: conjunctiva pink, EOMI, PERRLA. ABSENT: scleral icterus Ear exam: PRESENT: normal external ear exam Mouth exam: PRESENT: moist, tongue midline Neck exam: ABSENT: carotid bruit, JVD, lymphadenopathy, thyromegaly Respiratory exam: PRESENT: decreased breath sounds, unlabored - Markedly diminished breath sounds on the left Cardiovascular exam: PRESENT: RRR. ABSENT: diastolic murmur, rubs, systolic murmur Pulses: PRESENT: normal dorsalis pedis pul Vascular exam: PRESENT: normal capillary refill GI/Abdominal exam: PRESENT: normal bowel sounds, soft. ABSENT: distended, guarding, mass, organolmegaly, rebound, tenderness Rectal exam: PRESENT: deferred Extremities exam: PRESENT: +2 edema - left arm swelling present for the last 2 weeks according to patient Musculoskeletal exam: PRESENT: full ROM, tenderness Neurological exam: PRESENT: alert, awake, oriented to person, oriented to place , oriented to time, oriented to situation, CN II-XII grossly intact. ABSENT: motor sensory deficit Psychiatric exam: PRESENT: appropriate affect, normal mood. ABSENT: homicidal ideation, suicidal ideation Skin exam: PRESENT: dry, intact, warm, other - Left breast with large ulcerative mass foul smelling with necrotic tissue and purulent draingage. Large dressing covering left breast wound. ABSENT: cyanosis, rash Results Laboratory Results: 09/01/17 06:40 09/01/17 06:40 09/01/17 09/01/17 06:40 06:40 WBC 16.1 H RBC 3.47 L Hgb 9.3 L D Hct 28.2 L MCV 81 MCH 26.9 L MCHC 33.1 RDW 15.8 H Plt Count 432 Seg Neutrophils % 80.5 H Lymphocytes % 6.9 L Monocytes % 12.1 Eosinophils % 0.4 Basophils % 0.1 Absolute Neutrophils 13.0 H Absolute Lymphocytes 1.1 Absolute Monocytes 2.0 H Absolute Eosinophils 0.1 Absolute Basophils 0.0 Sodium 133.2 L Potassium 4.0 Chloride 102 Carbon Dioxide 19 L Anion Gap 12 BUN 34 H Creatinine 1.24 Est GFR ( Amer) 52 L Est GFR (Non-Af Amer) 43 L Glucose 123 H Calcium 7.6 L Magnesium 1.6 Total Bilirubin 0.5 AST 22 ALT 19 Alkaline Phosphatase 148 H Total Protein 5.1 L Albumin 2.1 L 08/31/17 08/31/17 01:15 07:43 Troponin I < 0.012 0.012 Impressions: Abdomen/Pelvis CT 08/30/17 14:27 IMPRESSION: Mild ascites. Cholelithiasis. Chest CT 08/30/17 16:17 IMPRESSION: 1. Large soft tissue mass with gas foci at the left breast, probably corresponding to known malignancy, superimposed infection is not excludable. Satellite nodules at the left upper breast. Left axillary adenopathy, probably metastatic. Evaluation with PET/CT may be worthwhile. 2. Mediastinal adenopathy and ill defined soft tissue density at the left upper lobe, worrisome for metastatic disease. Consolidation/atelectasis at the left upper and lower lobes.Small loculated left pleural effusion. 3. Mild cardiomegaly. Trace pericardial effusion. Chest X-Ray 08/31/17 18:03 IMPRESSION: 1. Worsening airspace disease at the left lung with almost complete opacification of the left hemithorax. 2. No pneumothorax status post central line placement. Assessment & Plan - Diagnosis (1) Septic shock Is this a current diagnosis for this admission?: Yes Plan: Likely left breast wound is source of infection. Initial wound cultures growing gram negative rods. Blood cultures negative at 24 hrs Continue broad spectrum antibiotics pending final culture results. Can stop vancomycin. Patient is presently on levophed at 6mcg/h to keep systolic BP > 100 mm hg, titrating downward (2) Breast, fat necrosis Is this a current diagnosis for this admission?: Yes Plan: Large ulcerative left breast mass, biopsy positive for breast cancer. Foul smelling. Likely source of sepsis. Dr Puentes is following for surgery. She has been seen by Dr Mejia prior (3) CHANA (acute kidney injury) Is this a current diagnosis for this admission?: Yes Plan: Improved today. Cr 1.24 secondary to sepsis and hypotension. We will avoid nephrotoxic medications and dosages (4) Anemia Qualifiers: Chronic kidney disease stage: stage 3 (moderate) Is this a current diagnosis for this admission?: Yes Plan: Hgb up to 9.3 after 2 units of PRBCs, She is still requiring levophed. May need another unit of PRBCs (5) Breast cancer Qualifiers: Laterality: left Is this a current diagnosis for this admission?: Yes Plan: Dr Padilla is following from oncology. Appreciate her input. Daughter is here from [place] has many questions regarding possible treatment options (6) Hyponatremia Is this a current diagnosis for this admission?: Yes Plan: Improved with IV hydration and blood. Will send urine and serum os. May be secondary to neoplastic syndrome (7) Mass of left lung Is this a current diagnosis for this admission?: Yes Plan: Patient has large mass in left lung concerning for metastasis. Worsening chest xray which shows almost complete opacification of left chest. Will add incentive spirometer. Discussed with patient and daughter Questionable infiltrate versus atelectasis, or metastasis in left lower lobe. She has no cough, or sputum production. (8) Left arm swelling Is this a current diagnosis for this admission?: Yes Plan: Patient states her left arm has been swollen for the last 2-3 weeks,likely due to mass and adenopathy - Time Time Spent with patient: 35 or more minutes Total Critical Time (Minutes): 25 Medications reviewed and adjusted accordingly: Yes
[2017-09-01] MEDS ORDERED: NORMAL SALINE 250 ML IV PRN ×2 (13:34)
[2017-09-01] MEDS ORDERED: OXYCODONE HCL IR 5 MG TABLET PO PRN (13:37)
[2017-09-01] MEDS ORDERED: HYDROCORTISONE SOD SUCCINATE INJ/PF 100 MG/2 ML SDV IV ONE (17:00)
[2017-09-01] MEDS: HYDROCORTISONE SOD SUCCINATE INJ/PF 100 MG/2 ML SDV IV SCH (22:48)
[2017-09-02] MEDS: PIPERACILLIN SODIUM/TAZOBACTAM 3.375 GM in NORMAL SALINE 100 ML IV SCH ×4 (00:48→18:57)
[2017-09-02] MEDS: NORMAL SALINE 1000 ML 1,000 ML IV PRN ×2 (00:49→20:13)
[2017-09-02] MEDS: ALBUTEROL SULFATE 0.042% NEB (1.25 MG/3 ML) AMPUL NEB SCH ×2 (01:39→08:05)
[2017-09-02] MEDS: HYDROCORTISONE SOD SUCCINATE INJ/PF 100 MG/2 ML SDV IV SCH ×3 (05:29→21:25)
[2017-09-02 05:54] LABS: HEMATOCRIT 33.2 % (36.0-47.0); HEMOGLOBIN 11.1 g/dL (12.0-15.5); MEAN CORPUSCULAR HEMOGLOBIN 27.3 pg (27.0-33.4); MEAN CORPUSCULAR HGB CONC 33.3 g/dL (32.0-36.0); MEAN CORPUSCULAR VOLUME 82 fl (80-97); PLATELET COUNT 426 10^3/uL (150-450); RED BLOOD COUNT 4.05 10^6/uL (3.72-5.28); RED CELL DISTRIBUTION WIDTH 16.2 % (11.5-14.0); RETICULOCYTE COUNT (AUTO) 1.48 % (0.66-2.85); WHITE BLOOD COUNT 18.2 10^3/uL (4.0-10.5)
[2017-09-02 06:22] LABS: ALANINE AMINOTRANSFERASE 24 U/L (9-52); ALBUMIN 2.2 g/dL (3.5-5.0); ALKALINE PHOSPHATASE 148 U/L (38-126); ANION GAP 15 (5-19); ASPARTATE AMINO TRANSFERASE 18 U/L (14-36); BILIRUBIN,DIRECT 0.4 mg/dL (0.0-0.4); BILIRUBIN,TOTAL 0.5 mg/dL (0.2-1.3); BLOOD UREA NITROGEN 28 mg/dL (7-20); CALCIUM 7.8 mg/dL (8.4-10.2); CARBON DIOXIDE 18 mmol/L (22-30); CHLORIDE 102 mmol/L (98-107); GLUCOSE 147 mg/dL (75-110); SODIUM 134.7 mmol/L (137-145); TOTAL PROTEIN 5.3 g/dL (6.3-8.2)
[2017-09-02 06:45] LABS: ABSOLUTE LYMPHOCYTES# (MANUAL) 0.5 10^3/uL (0.5-4.7); ABSOLUTE MONOCYTES # (MANUAL) 0.9 10^3/uL (0.1-1.4); ABSOLUTE NEUTROPHILS# (MANUAL) 16.7 10^3/uL (1.7-8.2); BASOPHILS % (MANUAL) 0 % (0-2); EOSINOPHILS % (MANUAL) 0 % (0-6); LYMPHOCYTES % (MANUAL) 3 % (13-45); MONOCYTES % (MANUAL) 5 % (3-13); NUCLEATED RED BLOOD CELLS 1 /100 WBC (0); SEGMENTED NEUTROPHILS % (MAN) 92 % (42-78); TOTAL CELLS COUNTED 100
[2017-09-02 06:47] LABS: ANISOCYTOSIS 1+; HYPOCHROMASIA SLIGHT; PLATELET COMMENT ADEQUATE; POLYCHROMASIA 1+
--- NOTE | 2017-09-02 07:10 | OPERATIVE REPORT E ---
Operative Report NAME: KENY PETERSON : 1950 AGE: 66Y DATE OF SURGERY: 09/02/2017 ROOM: 611 PREOPERATIVE DIAGNOSIS: Left breast mass with necrotic tissue. POSTOPERATIVE DIAGNOSIS: Left breast mass with necrotic tissue. PROCEDURE: Debridement of necrotic tissue on the left breast, presumed to have cancer. SURGEON: CONSTANTINE DE LA O M.D. DESCRIPTION OF PROCEDURE: With the necrotic tissue on the left breast roughly measuring about 10 x 10 cm, sharp dissection and debridement using 11 scalpel blade. Most of the necrotic tissue with foul-smelling discharge was excised. A wet-to-dry dressing was then applied. The patient tolerated the procedure well. DICTATING PHYSICIAN: CONSTANTINE DE LA O M.D. [id number] PHY#: [id number] ID: [id number] JOB#: [id number] ACCT: [id number] cc:CONSTANTINE DE LA O M.D. >
[2017-09-02 07:26] LABS: FOLATE 3.28 ng/mL (>2.76)
[2017-09-02] MEDS ORDERED: ALBUTEROL SULFATE 0.042% NEB (1.25 MG/3 ML) AMPUL NEB PRN (08:05)
--- NOTE | 2017-09-02 08:13 | PDOC PROGRESS REPORT ---
Subjective Progress Note for:: 09/02/17 Subjective:: Patient states the she is feeling stronger today. She is able to speak clearer and is less short of breath. She had lots of company yesterday. Her daughter returned to [place], but should return later this week. Her family is currently not at bedside. ROS: Pain controlled. Left arm swelling, abdominal pain, but no constipation. Reason For Visit: SEPSIS,NECROTIC,FUNGATING, AND INFECTED LEFT BREAS Physical Exam Vital Signs: Temp Pulse Resp BP Pulse Ox 98.2 F 140 H 14 103/83 95 09/02/17 06:00 09/01/17 20:00 09/02/17 06:10 09/02/17 06:10 09/02/17 04:00 Intake & Output 09/01/17 09/02/17 09/03/17 06:59 06:59 06:59 Intake Total 700 2320 Output Total 1415 1210 Balance -715 1110 Weight 78.7 kg 81.9 kg General appearance: PRESENT: no acute distress Respiratory exam: PRESENT: clear to auscultation luke, unlabored Cardiovascular exam: PRESENT: RRR, tachycardia GI/Abdominal exam: PRESENT: soft, tenderness Extremities exam: PRESENT: +2 edema - Left UE. This is new and progressive from last week. Neurological exam: PRESENT: alert, awake Psychiatric exam: PRESENT: appropriate affect Skin exam: PRESENT: normal color Results Laboratory Results: 09/02/17 05:30 09/01/17 09/02/17 20:16 05:30 WBC 18.2 H RBC 4.05 Hgb 11.1 L Hct 33.2 L MCV 82 MCH 27.3 MCHC 33.3 RDW 16.2 H Plt Count 426 Seg Neutrophils % Not Reportable Lymphocytes % Not Reportable Monocytes % Not Reportable Eosinophils % Not Reportable Basophils % Not Reportable Absolute Neutrophils Not Reportable Absolute Lymphocytes Not Reportable Absolute Monocytes Not Reportable Absolute Eosinophils Not Reportable Absolute Basophils Not Reportable Retic Count (auto) 1.48 Absolute Retic 0.060 Urine Osmolality 364 08/31/17 08/31/17 01:15 07:43 Troponin I < 0.012 0.012 Impressions: Abdomen/Pelvis CT 08/30/17 14:27 IMPRESSION: Mild ascites. Cholelithiasis. Chest CT 08/30/17 16:17 IMPRESSION: 1. Large soft tissue mass with gas foci at the left breast, probably corresponding to known malignancy, superimposed infection is not excludable. Satellite nodules at the left upper breast. Left axillary adenopathy, probably metastatic. Evaluation with PET/CT may be worthwhile. 2. Mediastinal adenopathy and ill defined soft tissue density at the left upper lobe, worrisome for metastatic disease. Consolidation/atelectasis at the left upper and lower lobes.Small loculated left pleural effusion. 3. Mild cardiomegaly. Trace pericardial effusion. Chest X-Ray 08/31/17 18:03 IMPRESSION: 1. Worsening airspace disease at the left lung with almost complete opacification of the left hemithorax. 2. No pneumothorax status post central line placement. Assessment & Plan - Diagnosis (1) Breast cancer Qualifiers: Laterality: left Is this a current diagnosis for this admission?: Yes Plan: Stage IV, Inflammatory. She would be most appropriate to start a Her-2 targeted chemotherapy regimen as first treatment line. However, may be difficult to do this while on pressors and antibiotics. I would need LVEF prior to starting herceptin or Perjeta. I will try to arrange now, as these agents could be started prior to chemotherapy. (2) Anemia Qualifiers: Chronic kidney disease stage: stage 3 (moderate) Is this a current diagnosis for this admission?: Yes Plan: Improved after blood transfusions. May transfuse further if indicated. (3) Septic shock Is this a current diagnosis for this admission?: Yes Plan: Continues pressers. Hopefully, these will be weaned today. (4) Left arm swelling Is this a current diagnosis for this admission?: Yes Plan: Although this is most likely lymphedema from her cancer, she is at high risk for DVT as well. I will check US/doppler.
[2017-09-02] MEDS ORDERED: BISACODYL 10 MG SUPP.RECT PR PRN (08:24)
[2017-09-02] MEDS ORDERED: ONDANSETRON HCL INJ/PF 4 MG/2 ML SDV IV PRN (11:00)
[2017-09-02] MEDS ORDERED: SODIUM BICARBONATE 650 MG TABLET PO ONE (12:00)
[2017-09-02] MEDS: DOCUSATE SODIUM 100 MG CAPSULE PO SCH ×2 (12:48→18:57)
[2017-09-02] MEDS: CLINDAMYCIN 600 MG/D5W RTU 600 MG/50 ML RTUPB IV SCH ×2 (12:48→18:56)
[2017-09-02] MEDS: ASPIRIN 81 MG TABLET, ENT COATED PO SCH (12:48)
[2017-09-02] MEDS: LACTOBACILLUS ACIDOPHILUS 250 MG TAB PO SCH ×2 (12:49→18:57)
[2017-09-02] MEDS: ENOXAPARIN SODIUM INJ 30 MG/0.3 ML DISP.SYRIN SUBCUT SCH (12:49)
[2017-09-02] MEDS: VANCOMYCIN HCL 1,500 MG in DEXTROSE 5%-WATER 250 ML IV SCH (12:57)
[2017-09-02] MEDS: MORPHINE SULFATE 10 MG/ML INJ IV PRN (12:58)
--- NOTE | 2017-09-02 13:52 | PDOC PROGRESS REPORT ---
Subjective Progress Note for:: 09/02/17 Subjective:: Patient is seen resting in bed. She is awake, alert and oriented x 3. She denies any shortness of breath or dyspnea at rest. She admits to some dyspnea when talking. She denies any cough. She denies any chest pain. She is having some discomfort in the left breast. This was debrided yesterday by Dr Peuntes. She denies any nausea, vomiting or diarrhea. She admits to some lower abdominal discomfort. She states she believes it's been a week since her bowels moved. She denies any arthralgias or myalgias. Remaining review of systems are negative. No family is at the bedside. Reason For Visit: SEPSIS,NECROTIC,FUNGATING, AND INFECTED LEFT BREAS Physical Exam Vital Signs: Temp Pulse Resp BP Pulse Ox 98.2 F 140 H 14 103/83 95 09/02/17 06:00 09/01/17 20:00 09/02/17 06:10 09/02/17 06:10 09/02/17 04:00 Intake & Output 09/01/17 09/02/17 09/03/17 06:59 06:59 06:59 Intake Total 700 2320 Output Total 1415 1210 Balance -715 1110 Weight 78.7 kg 81.9 kg General appearance: PRESENT: no acute distress, well-developed, well-nourished Head exam: PRESENT: atraumatic, normocephalic Eye exam: PRESENT: conjunctiva pink, EOMI, PERRLA. ABSENT: scleral icterus Ear exam: PRESENT: normal external ear exam Mouth exam: PRESENT: neck supple, tongue midline Neck exam: ABSENT: carotid bruit, JVD, lymphadenopathy, thyromegaly Respiratory exam: PRESENT: decreased breath sounds - left hemithorax, symmetrical, unlabored Cardiovascular exam: PRESENT: +S1, +S2, tachycardia Pulses: PRESENT: normal dorsalis pedis pul Vascular exam: PRESENT: normal capillary refill GI/Abdominal exam: PRESENT: normal bowel sounds, soft. ABSENT: distended, guarding, mass, organolmegaly, rebound, tenderness Rectal exam: PRESENT: deferred Extremities exam: PRESENT: full ROM, +2 edema - left arm. ABSENT: calf tenderness, clubbing, pedal edema Musculoskeletal exam: PRESENT: full ROM, other - swelling of left arm Neurological exam: PRESENT: alert, awake, oriented to person, oriented to place , oriented to time, oriented to situation, CN II-XII grossly intact. ABSENT: motor sensory deficit Psychiatric exam: PRESENT: appropriate affect, normal mood. ABSENT: homicidal ideation, suicidal ideation Skin exam: PRESENT: dry, warm, other - Surgical dressing over left breast, not as malodorous since debridement yesterday Results Laboratory Results: 09/02/17 05:30 09/01/17 09/02/17 20:16 05:30 WBC 18.2 H RBC 4.05 Hgb 11.1 L Hct 33.2 L MCV 82 MCH 27.3 MCHC 33.3 RDW 16.2 H Plt Count 426 Seg Neutrophils % Not Reportable Lymphocytes % Not Reportable Monocytes % Not Reportable Eosinophils % Not Reportable Basophils % Not Reportable Absolute Neutrophils Not Reportable Absolute Lymphocytes Not Reportable Absolute Monocytes Not Reportable Absolute Eosinophils Not Reportable Absolute Basophils Not Reportable Retic Count (auto) 1.48 Absolute Retic 0.060 Urine Osmolality 364 08/31/17 08/31/17 01:15 07:43 Troponin I < 0.012 0.012 Impressions: Abdomen/Pelvis CT 08/30/17 14:27 IMPRESSION: Mild ascites. Cholelithiasis. Chest CT 08/30/17 16:17 IMPRESSION: 1. Large soft tissue mass with gas foci at the left breast, probably corresponding to known malignancy, superimposed infection is not excludable. Satellite nodules at the left upper breast. Left axillary adenopathy, probably metastatic. Evaluation with PET/CT may be worthwhile. 2. Mediastinal adenopathy and ill defined soft tissue density at the left upper lobe, worrisome for metastatic disease. Consolidation/atelectasis at the left upper and lower lobes.Small loculated left pleural effusion. 3. Mild cardiomegaly. Trace pericardial effusion. Chest X-Ray 08/31/17 18:03 IMPRESSION: 1. Worsening airspace disease at the left lung with almost complete opacification of the left hemithorax. 2. No pneumothorax status post central line placement. Assessment & Plan - Diagnosis (1) Septic shock Is this a current diagnosis for this admission?: Yes Plan: Likely left breast wound is source of infection. Initial wound cultures growing gram negative rods, and gram positive cocci. One blood culture positive for gram positive rods. D/C cipro and added IV clindamycin to zosyn and vancomycinPatient is presently on levophed at 2 mcg/h to keep systolic BP > 100 mm hg, titrating downward. Left breast was debrided by Dr Puentes yesterday. We appreciate his assistance (2) Breast, fat necrosis Is this a current diagnosis for this admission?: Yes Plan: Large ulcerative left breast mass, biopsy positive for breast cancer. Foul smelling. Likely source of sepsis. Dr Puentes debrided large area of necrosis yesterday (3) CHANA (acute kidney injury) Is this a current diagnosis for this admission?: Yes Plan: Improved today. Cr 1.09 secondary to sepsis and hypotension. We will avoid nephrotoxic medications and dosages (4) Anemia Qualifiers: Chronic kidney disease stage: stage 3 (moderate) Is this a current diagnosis for this admission?: Yes Plan: Hgb up to 11.1 after 3 units of PRBCs, She is still requiring levophed. May need another unit of PRBCs (5) Breast cancer Qualifiers: Laterality: left Is this a current diagnosis for this admission?: Yes Plan: Dr Padilla is following from oncology. Appreciate her input. Daughter is here from [place] has many questions regarding possible treatment options (6) Hyponatremia Is this a current diagnosis for this admission?: Yes Plan: Improved with IV hydration (7) Mass of left lung Is this a current diagnosis for this admission?: Yes Plan: Patient has large mass in left lung concerning for metastasis. Worsening chest xray which shows almost complete opacification of left chest. Will add incentive spirometer. Discussed with patient and daughter Questionable infiltrate versus atelectasis, or metastasis in left lower lobe. She has no cough, or sputum production. She is tachycardic and becomes mildly dyspneic with exertion (8) Left arm swelling Is this a current diagnosis for this admission?: Yes Plan: Patient states her left arm has been swollen for the last 2-3 weeks,likely due to mass and adenopathy. Will obtain venous duplex to rule out DVT due to risk of embolization with cancer diagnosis (9) Tachycardia Is this a current diagnosis for this admission?: Yes Plan: Likely due to pressor and left lung status - Time Time Spent with patient: 35 or more minutes Total Critical Time (Minutes): 30 Medications reviewed and adjusted accordingly: Yes - Inpatient Certification Based on my medical assessment, after consideration of the patient's comorbidities, presenting symptoms, or acuity I expect that the services needed warrant INPATIENT care.: Yes I certify that my determination is in accordance with my understanding of Medicare's requirements for reasonable and necessary INPATIENT services [42 CFR 412.3e].: Yes Medical Necessity: Need For IV Fluids, Need for IV Antibiotics, Need for Surgery , Risk of Complication if Not Cared For in Hospital
--- NOTE | 2017-09-02 15:07 | RADIOLOGY REPORT (SQ) ---
EXAM DESCRIPTION: VENOUS UNILATERAL UPPER COMPLETED DATE/TIME: 09/02/2017 2:27 pm REASON FOR STUDY: Left upper extremity swelling rule out DVT COMPARISON: None. TECHNIQUE: Dynamic and static paul scale and color images acquired of the left arm venous system. Se lected spectral images acquired with additional compression and augmentation maneuvers. The contralat eral subclavian vein and internal jugular vein were also imaged. Images stored on PACS. LIMITATIONS: None. FINDINGS: INTERNAL JUGULAR VEIN: Normal phasicity, compression, augmentation. No visualized echogeni c material on paul scale. No defects on color images. Comparison opposite side normal. SUBCLAVIAN VEIN: Normal compression, augmentation. No visualized echogenic material on paul scale. No defects on color images. AXILLARY VEIN: Normal compression, augmentation. No visualized echogenic material on paul scale. No d efects on color images. BRACHIAL VEIN: Normal compression, augmentation. No visualized echogenic material on paul scale. No d efects on color images. BASILIC VEIN: Normal compression, augmentation. No visualized echogenic material on paul scale. No de fects on color images. CEPHALIC VEIN: Normal compression, augmentation. No visualized echogenic material on paul scale. No d efects on color images. OTHER: No other significant finding. CONTRALATERAL SUBCLAVIAN VEIN AND INTERNAL JUGULAR VEIN: Normal phasicity, compression and augmentation. No visualized echogenic material on paul scale. No de fects on color images. IMPRESSION: NO EVIDENCE DVT OR SVT IN THE LEFT ARM. TECHNICAL DOCUMENTATION: JOB ID: [id number] [facility]- All Rights Reserved Reading location - IP/workstation name: [email or web address]
[2017-09-02] MEDS: SODIUM BICARBONATE 650 MG TABLET PO SCH (21:26)
[2017-09-03] MEDS: PIPERACILLIN SODIUM/TAZOBACTAM 3.375 GM in NORMAL SALINE 100 ML IV SCH ×2 (00:18→05:29)
[2017-09-03] MEDS: CLINDAMYCIN 600 MG/D5W RTU 600 MG/50 ML RTUPB IV SCH ×3 (02:38→17:03)
[2017-09-03] MEDS: NORMAL SALINE 1000 ML 1,000 ML IV PRN ×2 (02:39→21:31)
[2017-09-03] MEDS: HYDROCORTISONE SOD SUCCINATE INJ/PF 100 MG/2 ML SDV IV SCH (05:29)
[2017-09-03 05:38] LABS: HEMATOCRIT 30.8 % (36.0-47.0); HEMOGLOBIN 10.4 g/dL (12.0-15.5); MEAN CORPUSCULAR HGB CONC 33.7 g/dL (32.0-36.0); MEAN CORPUSCULAR VOLUME 83 fl (80-97); PLATELET COUNT 355 10^3/uL (150-450); RED BLOOD COUNT 3.72 10^6/uL (3.72-5.28); RED CELL DISTRIBUTION WIDTH 16.3 % (11.5-14.0)
[2017-09-03 05:51] LABS: ANION GAP 12 (5-19); BLOOD UREA NITROGEN 27 mg/dL (7-20); CALCIUM 7.6 mg/dL (8.4-10.2); CARBON DIOXIDE 18 mmol/L (22-30); CHLORIDE 108 mmol/L (98-107); GLUCOSE 134 mg/dL (75-110); POTASSIUM 3.4 mmol/L (3.6-5.0); SODIUM 138.3 mmol/L (137-145)
[2017-09-03 06:23] LABS: ABSOLUTE LYMPHOCYTES# (MANUAL) 0.8 10^3/uL (0.5-4.7); ABSOLUTE MONOCYTES # (MANUAL) 1.3 10^3/uL (0.1-1.4); ABSOLUTE NEUTROPHILS# (MANUAL) 13.9 10^3/uL (1.7-8.2); BAND NEUTROPHILS % (MANUAL) 1 % (3-5); BASOPHILS % (MANUAL) 0 % (0-2); EOSINOPHILS % (MANUAL) 0 % (0-6); LYMPHOCYTES % (MANUAL) 5 % (13-45); MONOCYTES % (MANUAL) 8 % (3-13); SEGMENTED NEUTROPHILS % (MAN) 86 % (42-78); TOTAL CELLS COUNTED 100
[2017-09-03 06:25] LABS: ANISOCYTOSIS 1+; BURR CELLS 2+; HYPOCHROMASIA 1+; PLATELET COMMENT ADEQUATE; POIKILOCYTOSIS 2+
[2017-09-03] MEDS ORDERED: METOCLOPRAMIDE HCL INJ/PF 10 MG/2 ML SDV IV PRN (07:54)
--- NOTE | 2017-09-03 08:01 | PDOC PROGRESS REPORT ---
Subjective Progress Note for:: 09/03/17 Subjective:: Patient sitting up in bed trying to eat breakfast. She states that she ate some yesterday, and seems to want to say more, but only repeats this sentence. She states her will be here later, but he has to go to [place] tomorrow. Nurses report that patient is more confused. Her urine output is much less. She vomited yesterday. She has been off pressers since yesterday morning. Reason For Visit: SEPSIS,NECROTIC,FUNGATING, AND INFECTED LEFT BREAS Physical Exam Vital Signs: Temp Pulse Resp BP Pulse Ox 98.1 F 130 H 16 93/74 L 92 09/03/17 00:00 09/02/17 20:00 09/03/17 07:10 09/03/17 07:10 09/02/17 22:54 Intake & Output 09/02/17 09/03/17 09/04/17 06:59 06:59 06:59 Intake Total 2320 3169 50 Output Total 1210 985 Balance 1110 2184 50 Weight 81.9 kg 84.8 kg General appearance: PRESENT: mild distress Head exam: PRESENT: normocephalic Respiratory exam: PRESENT: decreased breath sounds, tachypnea Cardiovascular exam: PRESENT: RRR, tachycardia Extremities exam: PRESENT: +2 edema - Left UE Neurological exam: PRESENT: alert, awake Psychiatric exam: PRESENT: appropriate affect Skin exam: PRESENT: normal color Results Laboratory Results: 09/03/17 05:10 09/03/17 05:10 09/02/17 09/02/17 09/03/17 05:30 05:30 05:10 WBC RBC Hgb Hct MCV MCH MCHC RDW Plt Count Seg Neutrophils % Lymphocytes % Monocytes % Eosinophils % Basophils % Absolute Neutrophils Absolute Lymphocytes Absolute Monocytes Absolute Eosinophils Absolute Basophils Sodium 134.7 L 138.3 Potassium 4.0 3.4 L Chloride 102 108 H Carbon Dioxide 18 L 18 L Anion Gap 15 12 BUN 28 H 27 H Creatinine 1.09 1.20 Est GFR ( Amer) > 60 54 L Est GFR (Non-Af Amer) 50 L 45 L Glucose 147 H 134 H Serum Osmolality 285 Calcium 7.8 L 7.6 L Magnesium 1.6 Iron 18.0 L TIBC 127 L % Saturation 14 Ferritin 1240.00 H Total Bilirubin 0.5 AST 18 ALT 24 Alkaline Phosphatase 148 H Total Protein 5.3 L Albumin 2.2 L Vitamin B12 > 1000.0 H Folate 3.28 09/03/17 05:10 WBC 16.0 H RBC 3.72 Hgb 10.4 L Hct 30.8 L MCV 83 MCH 28.0 MCHC 33.7 RDW 16.3 H Plt Count 355 Seg Neutrophils % Not Reportable Lymphocytes % Not Reportable Monocytes % Not Reportable Eosinophils % Not Reportable Basophils % Not Reportable Absolute Neutrophils Not Reportable Absolute Lymphocytes Not Reportable Absolute Monocytes Not Reportable Absolute Eosinophils Not Reportable Absolute Basophils Not Reportable Sodium Potassium Chloride Carbon Dioxide Anion Gap BUN Creatinine Est GFR ( Amer) Est GFR (Non-Af Amer) Glucose Serum Osmolality Calcium Magnesium Iron TIBC % Saturation Ferritin Total Bilirubin AST ALT Alkaline Phosphatase Total Protein Albumin Vitamin B12 Folate 08/31/17 08/31/17 01:15 07:43 Troponin I < 0.012 0.012 Impressions: Abdomen/Pelvis CT 08/30/17 14:27 IMPRESSION: Mild ascites. Cholelithiasis. Chest CT 08/30/17 16:17 IMPRESSION: 1. Large soft tissue mass with gas foci at the left breast, probably corresponding to known malignancy, superimposed infection is not excludable. Satellite nodules at the left upper breast. Left axillary adenopathy, probably metastatic. Evaluation with PET/CT may be worthwhile. 2. Mediastinal adenopathy and ill defined soft tissue density at the left upper lobe, worrisome for metastatic disease. Consolidation/atelectasis at the left upper and lower lobes.Small loculated left pleural effusion. 3. Mild cardiomegaly. Trace pericardial effusion. Venous Doppler Study 09/02/17 00:00 IMPRESSION: NO EVIDENCE DVT OR SVT IN THE LEFT ARM. Assessment & Plan - Diagnosis (1) Breast cancer Qualifiers: Laterality: left Is this a current diagnosis for this admission?: Yes Plan: Await LVEF prior to starting any therapy. MUGA scheduled for this morning. I am still quite concerned about any type of treatment causing more problems than solutions, but will continue to work toward this goal. She may have brain mets. Not sure she would be able to tolerate MRI scan, but will discuss with family and watch mental status. (2) Anemia Qualifiers: Chronic kidney disease stage: stage 3 (moderate) Is this a current diagnosis for this admission?: Yes Plan: Improved with transfusions, but again trending downward. Consider further transfusions. (3) Septic shock Is this a current diagnosis for this admission?: Yes (4) Left arm swelling Is this a current diagnosis for this admission?: Yes Plan: US was negative for DVT. Most likely just lymphedema due to cancer. - Plan Summary Plan Summary: If heart is not strong enough for treatment, then must discuss palliative care and Hospice with patient and family. I have requested family meeting and will try to arrange this within the next 24 hours. She is still full code.
--- NOTE | 2017-09-03 08:45 | RADIOLOGY REPORT (SQ) ---
EXAM DESCRIPTION: CHEST SINGLE VIEW COMPLETED DATE/TIME: 09/03/2017 6:19 am REASON FOR STUDY: Shortness of breath, left lower lung collapse COMPARISON: 08/31/2017 NUMBER OF VIEWS: One view. TECHNIQUE: Single frontal radiographic image of the chest acquired. LIMITATIONS: None. FINDINGS: LUNGS AND PLEURA: Persistent collapse of the left lung. Known breast malignancy and left lung nodules. Right lung is clear. MEDIASTINUM AND HILAR STRUCTURES: Stable heart size and mediastinal structures. HEART AND VASCULAR STRUCTURES: Stable appearance. SUPPORT DEVICES: Appropriate location without change. BONES: No acute findings. OTHER: No other significant finding. IMPRESSION: Left lung collapse. No significant change. TECHNICAL DOCUMENTATION: JOB ID: [id number] [email or web address] All Rights Reserved Reading location - IP/workstation name: [email or web address]
[2017-09-03] MEDS ORDERED: CIPROFLOXACIN 400 MG/D5W RTU 400 MG/200 ML RTUPB IV SCH (10:00)
[2017-09-03] MEDS: LACTOBACILLUS ACIDOPHILUS 250 MG TAB PO SCH ×2 (10:11→17:03)
[2017-09-03] MEDS: SODIUM BICARBONATE 650 MG TABLET PO SCH ×2 (10:11→21:30)
[2017-09-03] MEDS: ENOXAPARIN SODIUM INJ 30 MG/0.3 ML DISP.SYRIN SUBCUT SCH (10:12)
[2017-09-03] MEDS: DOCUSATE SODIUM 100 MG CAPSULE PO SCH ×2 (10:12→17:03)
[2017-09-03] MEDS: ASPIRIN 81 MG TABLET, ENT COATED PO SCH (10:13)
[2017-09-03] MEDS: MORPHINE SULFATE 10 MG/ML INJ IV PRN ×2 (10:14→13:30)
[2017-09-03] MEDS: VANCOMYCIN HCL 1,500 MG in DEXTROSE 5%-WATER 250 ML IV SCH (10:18)
--- NOTE | 2017-09-03 10:50 | PDOC PROGRESS REPORT ---
Subjective Progress Note for:: 09/03/17 Reason For Visit: SEPSIS,NECROTIC,FUNGATING, AND INFECTED LEFT BREAS Physical Exam Vital Signs: Temp Pulse Resp BP Pulse Ox 98.1 F 126 H 23 H 107/87 H 93 09/03/17 08:00 09/03/17 08:00 09/03/17 10:15 09/03/17 10:11 09/03/17 10:11 Intake & Output 09/02/17 09/03/17 09/04/17 06:59 06:59 06:59 Intake Total 2320 3419 50 Output Total 1210 985 60 Balance 1110 2434 -10 Weight 81.9 kg 84.8 kg General appearance: PRESENT: no acute distress, well-developed, well-nourished Head exam: PRESENT: atraumatic, normocephalic Eye exam: PRESENT: conjunctiva pink, EOMI, PERRLA. ABSENT: scleral icterus Ear exam: PRESENT: normal external ear exam Mouth exam: PRESENT: moist, tongue midline Neck exam: ABSENT: carotid bruit, JVD, lymphadenopathy, thyromegaly Respiratory exam: PRESENT: clear to auscultation luke. ABSENT: rales, rhonchi, wheezes Cardiovascular exam: PRESENT: +S1, +S2, tachycardia. ABSENT: diastolic murmur, rubs, systolic murmur Pulses: PRESENT: normal dorsalis pedis pul Vascular exam: PRESENT: normal capillary refill GI/Abdominal exam: PRESENT: normal bowel sounds, soft. ABSENT: distended, guarding, mass, organolmegaly, rebound, tenderness Rectal exam: PRESENT: deferred Extremities exam: PRESENT: full ROM. ABSENT: calf tenderness, clubbing, pedal edema Musculoskeletal exam: PRESENT: other - Necrotic L breast covered with dressing Neurological exam: PRESENT: alert, awake, oriented to person, oriented to place , oriented to situation. ABSENT: motor sensory deficit Psychiatric exam: PRESENT: appropriate affect, normal mood. ABSENT: homicidal ideation, suicidal ideation Skin exam: PRESENT: dry, intact, warm. ABSENT: cyanosis, rash Results Laboratory Results: 09/03/17 05:10 09/03/17 05:10 09/03/17 09/03/17 05:10 05:10 WBC 16.0 H RBC 3.72 Hgb 10.4 L Hct 30.8 L MCV 83 MCH 28.0 MCHC 33.7 RDW 16.3 H Plt Count 355 Seg Neutrophils % Not Reportable Lymphocytes % Not Reportable Monocytes % Not Reportable Eosinophils % Not Reportable Basophils % Not Reportable Absolute Neutrophils Not Reportable Absolute Lymphocytes Not Reportable Absolute Monocytes Not Reportable Absolute Eosinophils Not Reportable Absolute Basophils Not Reportable Sodium 138.3 Potassium 3.4 L Chloride 108 H Carbon Dioxide 18 L Anion Gap 12 BUN 27 H Creatinine 1.20 Est GFR ( Amer) 54 L Est GFR (Non-Af Amer) 45 L Glucose 134 H Calcium 7.6 L 08/31/17 08/31/17 01:15 07:43 Troponin I < 0.012 0.012 Impressions: Abdomen/Pelvis CT 08/30/17 14:27 IMPRESSION: Mild ascites. Cholelithiasis. Chest CT 08/30/17 16:17 IMPRESSION: 1. Large soft tissue mass with gas foci at the left breast, probably corresponding to known malignancy, superimposed infection is not excludable. Satellite nodules at the left upper breast. Left axillary adenopathy, probably metastatic. Evaluation with PET/CT may be worthwhile. 2. Mediastinal adenopathy and ill defined soft tissue density at the left upper lobe, worrisome for metastatic disease. Consolidation/atelectasis at the left upper and lower lobes.Small loculated left pleural effusion. 3. Mild cardiomegaly. Trace pericardial effusion. Venous Doppler Study 09/02/17 00:00 IMPRESSION: NO EVIDENCE DVT OR SVT IN THE LEFT ARM. Chest X-Ray 09/03/17 06:00 IMPRESSION: Left lung collapse. No significant change. Assessment & Plan - Diagnosis (1) CHANA (acute kidney injury) Is this a current diagnosis for this admission?: Yes (2) Breast cancer Qualifiers: Laterality: left Is this a current diagnosis for this admission?: Yes (3) Left arm swelling Is this a current diagnosis for this admission?: Yes (4) Septic shock Is this a current diagnosis for this admission?: Yes - Time Time Spent with patient: 15-24 minutes Anticipated discharge: Home - Inpatient Certification Based on my medical assessment, after consideration of the patient's comorbidities, presenting symptoms, or acuity I expect that the services needed warrant INPATIENT care.: Yes Medical Necessity: Need for IV Antibiotics - Plan Summary Plan Summary: Septic shock seems to have resolved. Wound cultures are yielding gram-negative rods. She is off Levophed. She is currently on clindamycin and vancomycin as well as Zosyn. Antibiotics will be reevaluated and adjusted as appropriate. 2. Acute kidney injury likely secondary to ATN. Kidney function is improving 3. Anemia status post 3 units of packed red blood cells transfusion. 4. Breast cancer left necrotic. Appreciate oncology input. 5. Sinus tachycardia likely secondary to underlying acute illness. Patient will be out of the intensive care unit and monitored on IMC
[2017-09-03] MEDS ORDERED: POTASSIUM CHLORIDE 10 MEQ CAPSULE.ER PO ONE (11:00)
--- NOTE | 2017-09-03 11:54 | RADIOLOGY REPORT (SQ) ---
EXAM DESCRIPTION: NM MUGA REST COMPLETED DATE/TIME: 09/03/2017 11:44 am REASON FOR STUDY: LVEF porior to starting anthracyclines COMPARISON: None. RADIONUCLIDE AND DOSE: 26.4 mCi technetium 99m labeled red blood cells The route of agent administration: Intravenous TECHNIQUE: Following administration of the radionuclide, gated images of the heart are obtained in t hree projections. Left ventricular functional analysis performed. LIMITATIONS: None. FINDINGS: LEFT VENTRICULAR FUNCTION: EJECTION FRACTION: 75%. END-DIASTOLIC VOLUME: 78 mL. END-SYSTOLIC VOLUME: 12 mL. WALL MOTION: No focal wall motion abnormalities. OTHER: No other significant finding. IMPRESSION: NORMAL CARDIAC MUGA STUDY. NORMAL LEFT VENTRICULAR FUNCTION WITH VALUES ABOVE. TECHNICAL DOCUMENTATION: JOB ID: [id number] [employer]- All Rights Reserved Reading location - IP/workstation name: [email or web address]
[2017-09-03] MEDS: VALPROATE SODIUM 1,000 MG in NORMAL SALINE 100 ML IV SCH (12:32)
--- NOTE | 2017-09-03 17:47 | Progress Note ---
Provider Note Provider Note: I spent 35 minutes with the patient, , and daughter, as well as ICU staff in family meeting this evening. We discussed diagnosis, prognosis, and difficulty in treating both infection and cancer at the same time. I have explained that this is not a curable disease, but with aggressive treatment, her cancer may or may not be treatable such that her quality of life may improve in the future. Without any cancer treatment, I do not expect her to improve at all, and continue to progressively decline. She is not a candidate for chemotherapy, but she may respond to a combination of Herceptin and Perjeta to target the Her-2 + cancer cells. I have explained that I believe it would be safer to wait to start these as an outpatient, but she may not improve enough to be discharged for this treatment. I have discussed palliative care and Hospice several times with the patient over the last few days, but she has every time stated that she wants to be a Full code, and wants to try every possible treatment, even if the treatment may cause her , or worsening of symptoms. Ultimately, the infection may improve if the cancer starts to shrink. We also discussed a second opinion. I have offered this, and they are considering this. They are considering all options and we will discuss further in the morning.
[2017-09-03] MEDS ORDERED: HYDROCORTISONE SOD SUCCINATE INJ/PF 100 MG/2 ML SDV IV SCH (22:00)
--- NOTE | 2017-09-04 02:30 | PDOC PROGRESS REPORT ---
Subjective Progress Note for:: 09/04/17 Subjective:: Sleepy. Obeys commands but not conversant. Reason For Visit: SEPSIS,NECROTIC,FUNGATING, AND INFECTED LEFT BREAS Physical Exam Vital Signs: Temp Pulse Resp BP Pulse Ox 98.2 F 139 H 11 L 85/62 L 96 09/04/17 00:00 09/03/17 20:00 09/03/17 22:45 09/03/17 22:42 09/03/17 22:45 Intake & Output 09/02/17 09/03/17 09/04/17 06:59 06:59 06:59 Intake Total 2320 5219 2730 Output Total 1210 985 150 Balance 1110 4234 2580 Weight 81.9 kg 84.8 kg General appearance: PRESENT: no acute distress, cooperative Skin exam: PRESENT: other - Left breast almost entirely replaced by fungating mass with loss of overlying skin with residual necrotic tissue scattered throughout. No active bleeding. No purulent drainage. No regions of fluctuance. Results Laboratory Results: 09/03/17 05:10 09/03/17 05:10 09/03/17 09/03/17 05:10 05:10 WBC 16.0 H RBC 3.72 Hgb 10.4 L Hct 30.8 L MCV 83 MCH 28.0 MCHC 33.7 RDW 16.3 H Plt Count 355 Seg Neutrophils % Not Reportable Lymphocytes % Not Reportable Monocytes % Not Reportable Eosinophils % Not Reportable Basophils % Not Reportable Absolute Neutrophils Not Reportable Absolute Lymphocytes Not Reportable Absolute Monocytes Not Reportable Absolute Eosinophils Not Reportable Absolute Basophils Not Reportable Sodium 138.3 Potassium 3.4 L Chloride 108 H Carbon Dioxide 18 L Anion Gap 12 BUN 27 H Creatinine 1.20 Est GFR ( Amer) 54 L Est GFR (Non-Af Amer) 45 L Glucose 134 H Calcium 7.6 L 08/31/17 08/31/17 01:15 07:43 Troponin I < 0.012 0.012 Impressions: Abdomen/Pelvis CT 08/30/17 14:27 IMPRESSION: Mild ascites. Cholelithiasis. Chest CT 08/30/17 16:17 IMPRESSION: 1. Large soft tissue mass with gas foci at the left breast, probably corresponding to known malignancy, superimposed infection is not excludable. Satellite nodules at the left upper breast. Left axillary adenopathy, probably metastatic. Evaluation with PET/CT may be worthwhile. 2. Mediastinal adenopathy and ill defined soft tissue density at the left upper lobe, worrisome for metastatic disease. Consolidation/atelectasis at the left upper and lower lobes.Small loculated left pleural effusion. 3. Mild cardiomegaly. Trace pericardial effusion. Venous Doppler Study 09/02/17 00:00 IMPRESSION: NO EVIDENCE DVT OR SVT IN THE LEFT ARM. MUGA 09/03/17 00:00 IMPRESSION: NORMAL CARDIAC MUGA STUDY. NORMAL LEFT VENTRICULAR FUNCTION WITH VALUES ABOVE. Chest X-Ray 09/03/17 06:00 IMPRESSION: Left lung collapse. No significant change. Assessment & Plan - Diagnosis (1) Primary cancer of left breast with metastasis to other site Is this a current diagnosis for this admission?: Yes Plan: Locally advanced left breast cancer, metastatic. I have discussed the case with who is in conversation with the patient and the family concerning treatment options versus hospice. Questionable whether further debridement would help the patient.
[2017-09-04] MEDS: CLINDAMYCIN 600 MG/D5W RTU 600 MG/50 ML RTUPB IV SCH ×3 (02:34→17:40)
[2017-09-04] MEDS: MORPHINE SULFATE 10 MG/ML INJ IV PRN ×3 (02:34→23:54)
[2017-09-04 06:31] LABS: HEMOGLOBIN 10.4 g/dL (12.0-15.5); MEAN CORPUSCULAR HEMOGLOBIN 27.2 pg (27.0-33.4); MEAN CORPUSCULAR HGB CONC 32.4 g/dL (32.0-36.0); MEAN CORPUSCULAR VOLUME 84 fl (80-97); PLATELET COUNT 366 10^3/uL (150-450); RED BLOOD COUNT 3.82 10^6/uL (3.72-5.28); RED CELL DISTRIBUTION WIDTH 16.9 % (11.5-14.0); WHITE BLOOD COUNT 14.7 10^3/uL (4.0-10.5)
[2017-09-04 06:51] LABS: ABSOLUTE LYMPHOCYTES# (MANUAL) 0.9 10^3/uL (0.5-4.7); ABSOLUTE MONOCYTES # (MANUAL) 1.3 10^3/uL (0.1-1.4); ABSOLUTE NEUTROPHILS# (MANUAL) 12.3 10^3/uL (1.7-8.2); BAND NEUTROPHILS % (MANUAL) 2 % (3-5); BASOPHILS % (MANUAL) 0 % (0-2); EOSINOPHILS % (MANUAL) 1 % (0-6); LYMPHOCYTES % (MANUAL) 6 % (13-45); MONOCYTES % (MANUAL) 9 % (3-13); SEGMENTED NEUTROPHILS % (MAN) 82 % (42-78); TOTAL CELLS COUNTED 100
[2017-09-04 06:52] LABS: POLYCHROMASIA SLIGHT
[2017-09-04 06:53] LABS: ANION GAP 9 (5-19); ANISOCYTOSIS 1+; BLOOD UREA NITROGEN 30 mg/dL (7-20); CARBON DIOXIDE 21 mmol/L (22-30); CHLORIDE 108 mmol/L (98-107); GLUCOSE 116 mg/dL (75-110); PLATELET COMMENT ADEQUATE; POTASSIUM 3.5 mmol/L (3.6-5.0); SODIUM 137.6 mmol/L (137-145)
[2017-09-04] MEDS: NORMAL SALINE 1000 ML 1,000 ML IV PRN ×2 (08:01→19:38)
--- NOTE | 2017-09-04 08:02 | PDOC PROGRESS REPORT ---
Subjective Progress Note for:: 09/04/17 Subjective:: Patient still very sleepy due to pain medications. Unable to stay awake long enough to hold a conversation. Family is not at bedside this morning. Patient states that her arm is bothering her but her stomach is feeling much better. Reason For Visit: SEPSIS,NECROTIC,FUNGATING, AND INFECTED LEFT BREAS Physical Exam Vital Signs: Temp Pulse Resp BP Pulse Ox 98.1 F 139 H 11 L 95/67 L 97 09/04/17 03:34 09/03/17 20:00 09/04/17 06:17 09/04/17 06:17 09/04/17 06:16 Intake & Output 09/03/17 09/04/17 09/05/17 06:59 06:59 06:59 Intake Total 5219 4215 Output Total 985 175 Balance 4234 4040 Weight 84.8 kg 88.7 kg General appearance: PRESENT: no acute distress Head exam: PRESENT: normocephalic Respiratory exam: PRESENT: unlabored Cardiovascular exam: PRESENT: RRR, tachycardia GI/Abdominal exam: PRESENT: soft. ABSENT: tenderness Extremities exam: PRESENT: +2 edema - Now in all 4 extremities. Neurological exam: PRESENT: altered Psychiatric exam: PRESENT: flat affect Skin exam: PRESENT: normal color, other - No significant change to left breast. Results Laboratory Results: 09/04/17 06:15 09/04/17 06:15 09/04/17 09/04/17 06:15 06:15 WBC 14.7 H RBC 3.82 Hgb 10.4 L Hct 32.0 L MCV 84 MCH 27.2 MCHC 32.4 RDW 16.9 H Plt Count 366 Seg Neutrophils % Not Reportable Lymphocytes % Not Reportable Monocytes % Not Reportable Eosinophils % Not Reportable Basophils % Not Reportable Absolute Neutrophils Not Reportable Absolute Lymphocytes Not Reportable Absolute Monocytes Not Reportable Absolute Eosinophils Not Reportable Absolute Basophils Not Reportable Sodium 137.6 Potassium 3.5 L Chloride 108 H Carbon Dioxide 21 L Anion Gap 9 BUN 30 H Creatinine 1.64 H Est GFR ( Amer) 38 L Est GFR (Non-Af Amer) 31 L Glucose 116 H Calcium 8.0 L 08/31/17 08/31/17 01:15 07:43 Troponin I < 0.012 0.012 Impressions: Abdomen/Pelvis CT 08/30/17 14:27 IMPRESSION: Mild ascites. Cholelithiasis. Chest CT 08/30/17 16:17 IMPRESSION: 1. Large soft tissue mass with gas foci at the left breast, probably corresponding to known malignancy, superimposed infection is not excludable. Satellite nodules at the left upper breast. Left axillary adenopathy, probably metastatic. Evaluation with PET/CT may be worthwhile. 2. Mediastinal adenopathy and ill defined soft tissue density at the left upper lobe, worrisome for metastatic disease. Consolidation/atelectasis at the left upper and lower lobes.Small loculated left pleural effusion. 3. Mild cardiomegaly. Trace pericardial effusion. Venous Doppler Study 09/02/17 00:00 IMPRESSION: NO EVIDENCE DVT OR SVT IN THE LEFT ARM. MUGA 09/03/17 00:00 IMPRESSION: NORMAL CARDIAC MUGA STUDY. NORMAL LEFT VENTRICULAR FUNCTION WITH VALUES ABOVE. Chest X-Ray 09/03/17 06:00 IMPRESSION: Left lung collapse. No significant change. Assessment & Plan - Diagnosis (1) Breast cancer Qualifiers: Laterality: left Is this a current diagnosis for this admission?: Yes (2) Anemia Qualifiers: Chronic kidney disease stage: stage 3 (moderate) Is this a current diagnosis for this admission?: Yes (3) Septic shock Is this a current diagnosis for this admission?: Yes (4) Left arm swelling Is this a current diagnosis for this admission?: Yes - Plan Summary Plan Summary: Her CXR shows "collapsed lung" however, I believe the opacification of her left lung may be due to the breast tumor anteriorly. Lateral X-ray would be helpful. She does not appear to be more dyspnic. She remains tachycardic. Her Cr is again increasing and her urine output has greatly decreased. Family is to make further decisions today as to aggressive treatment for the cancer vs. Palliative care. However, renal function at this point, is such that I do not believe any aggressive treatment is an option. I will again attempt to speak with family today.
[2017-09-04] MEDS: LACTOBACILLUS ACIDOPHILUS 250 MG TAB PO SCH ×2 (11:29→17:40)
[2017-09-04] MEDS: DOCUSATE SODIUM 100 MG CAPSULE PO SCH ×2 (11:30→17:40)
[2017-09-04] MEDS: SODIUM BICARBONATE 650 MG TABLET PO SCH ×2 (11:30→23:27)
[2017-09-04] MEDS: ASPIRIN 81 MG TABLET, ENT COATED PO SCH (11:30)
[2017-09-04] MEDS: ENOXAPARIN SODIUM INJ 30 MG/0.3 ML DISP.SYRIN SUBCUT SCH (11:30)
--- NOTE | 2017-09-04 14:31 | PDOC PROGRESS REPORT ---
Subjective Progress Note for:: 09/04/17 Subjective:: Patient appears to be more confused today. She is noted to be hypotensive again and remains tachycardic Reason For Visit: SEPSIS,NECROTIC,FUNGATING, AND INFECTED LEFT BREAS Physical Exam Vital Signs: Temp Pulse Resp BP Pulse Ox 98.4 F 143 H 18 85/66 L 95 09/04/17 12:00 09/04/17 12:00 09/04/17 12:00 09/04/17 12:00 09/04/17 12:00 Intake & Output 09/03/17 09/04/17 09/05/17 06:59 06:59 06:59 Intake Total 5219 4265 1050 Output Total 985 175 15 Balance 4234 4090 1035 Weight 84.8 kg 88.7 kg General appearance: PRESENT: no acute distress Head exam: PRESENT: atraumatic Neck exam: ABSENT: carotid bruit, JVD, lymphadenopathy, thyromegaly GI/Abdominal exam: PRESENT: normal bowel sounds, soft. ABSENT: distended, guarding, mass, organolmegaly, rebound, tenderness Neurological exam: PRESENT: alert, awake. ABSENT: oriented to person, oriented to place, oriented to time, oriented to situation Skin exam: PRESENT: other - Necrotic left breast lesion Results Laboratory Results: 09/04/17 06:15 09/04/17 06:15 09/04/17 09/04/17 06:15 06:15 WBC 14.7 H RBC 3.82 Hgb 10.4 L Hct 32.0 L MCV 84 MCH 27.2 MCHC 32.4 RDW 16.9 H Plt Count 366 Seg Neutrophils % Not Reportable Lymphocytes % Not Reportable Monocytes % Not Reportable Eosinophils % Not Reportable Basophils % Not Reportable Absolute Neutrophils Not Reportable Absolute Lymphocytes Not Reportable Absolute Monocytes Not Reportable Absolute Eosinophils Not Reportable Absolute Basophils Not Reportable Sodium 137.6 Potassium 3.5 L Chloride 108 H Carbon Dioxide 21 L Anion Gap 9 BUN 30 H Creatinine 1.64 H Est GFR ( Amer) 38 L Est GFR (Non-Af Amer) 31 L Glucose 116 H Calcium 8.0 L 08/31/17 08/31/17 01:15 07:43 Troponin I < 0.012 0.012 Impressions: Abdomen/Pelvis CT 08/30/17 14:27 IMPRESSION: Mild ascites. Cholelithiasis. Chest CT 08/30/17 16:17 IMPRESSION: 1. Large soft tissue mass with gas foci at the left breast, probably corresponding to known malignancy, superimposed infection is not excludable. Satellite nodules at the left upper breast. Left axillary adenopathy, probably metastatic. Evaluation with PET/CT may be worthwhile. 2. Mediastinal adenopathy and ill defined soft tissue density at the left upper lobe, worrisome for metastatic disease. Consolidation/atelectasis at the left upper and lower lobes.Small loculated left pleural effusion. 3. Mild cardiomegaly. Trace pericardial effusion. Venous Doppler Study 09/02/17 00:00 IMPRESSION: NO EVIDENCE DVT OR SVT IN THE LEFT ARM. MUGA 09/03/17 00:00 IMPRESSION: NORMAL CARDIAC MUGA STUDY. NORMAL LEFT VENTRICULAR FUNCTION WITH VALUES ABOVE. Chest X-Ray 09/03/17 06:00 IMPRESSION: Left lung collapse. No significant change. Assessment & Plan - Diagnosis (1) CHANA (acute kidney injury) Is this a current diagnosis for this admission?: Yes (2) Breast cancer Qualifiers: Laterality: left Is this a current diagnosis for this admission?: Yes (3) Left arm swelling Is this a current diagnosis for this admission?: Yes (4) Septic shock Is this a current diagnosis for this admission?: Yes - Time Time Spent with patient: 15-24 minutes Medications reviewed and adjusted accordingly: Yes Anticipated discharge: Other - If accepted possible transfer - Inpatient Certification Based on my medical assessment, after consideration of the patient's comorbidities, presenting symptoms, or acuity I expect that the services needed warrant INPATIENT care.: Yes Medical Necessity: Need for IV Antibiotics - Plan Summary Plan Summary: Septic shock seems to have resolved however patient became hypotensive again today. Wound cultures are yielding gram-negative rods. She is still off Levophed. She is currently on clindamycin and ciprofloxacin to cover the multiple organisms. Dr. Rudolph as discussed with the family and it appears they have requested patient be transferred to [facility] despite the poor prognosis. I have placed a call to [facility] and awaiting callback 2. Acute kidney injury likely secondary to ATN. Kidney function is slightly worse. 3. Anemia status post 3 units of packed red blood cells transfusion. 4. Breast cancer left necrotic. Appreciate oncology input. 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 Sinus tachycardia likely secondary to underlying acute illness. Patient remains in intensive care unit due to hypotension and sepsis
[2017-09-04] MEDS: CIPROFLOXACIN 400 MG/D5W RTU 400 MG/200 ML RTUPB IV SCH (15:25)
--- NOTE | 2017-09-04 16:34 | PDOC TRANSFER SUMMARY ---
General Admission Date/PCP: 08/30/17 18:52 FUNMI JUAREZ MD Admission Date: 08/30/17 Transfer Date: 09/04/17 Accepting Facility: [facility] Accepting Physician: Dr. Hagan Resuscitation Status: Full Code - Transfer Diagnosis (1) Breast cancer Is this a current diagnosis for this admission?: Yes (2) CHANA (acute kidney injury) Is this a current diagnosis for this admission?: Yes (3) Left arm swelling Is this a current diagnosis for this admission?: Yes (4) Septic shock Is this a current diagnosis for this admission?: Yes (5) Anemia Is this a current diagnosis for this admission?: Yes Diagnosis Summary: Iron deficiency (6) Hypotension Is this a current diagnosis for this admission?: Yes (7) Primary cancer of left breast with metastasis to other site Is this a current diagnosis for this admission?: Yes (8) Tachycardia Is this a current diagnosis for this admission?: Yes - Transfer Medications Home Medications: Amlodipine Besylate [Norvasc 5 mg Tablet] 5 mg PO Q12 08/30/17 Aspirin [Aspirin EC] 81 mg PO DAILY 08/30/17 Clonidine HCl [Catapres 0.1 mg Tablet] 0.1 mg PO Q8 08/30/17 Lorazepam [Ativan 1 mg Tablet] 1 mg PO DAILYP PRN MDD 2 TABS 08/30/17 Tramadol HCl [Ultram 50 mg Tablet] 50 mg PO Q6HP PRN 08/30/17 Valsartan [Diovan 160 mg Tablet] 320 mg PO DAILY 08/30/17 Transfer Medications: Current Medications Albuterol (Ventolin 0.042% Neb 1.25 Mg/3 Ml Ampul) 1.25 mg NEB RTQ6HP PRN PRN Reason: cough and wheezing Stop: 10/02/17 08:04 Aspirin (Ecotrin 81 Mg Ec Tablet) 81 mg PO DAILY CATE Stop: 09/30/17 09:59 Last Admin: 09/04/17 11:30 Dose: 81 mg Bisacodyl (Dulcolax 10 Mg Supp.Rect) 10 mg MI DAILY PRN PRN Reason: constipation Stop: 10/02/17 09:59 Docusate Sodium (Colace 100 Mg Capsule) 100 mg PO BID CATE Stop: 10/02/17 09:59 Last Admin: 09/04/17 11:30 Dose: 100 mg Enoxaparin Sodium (Lovenox Inj 30 Mg/0.3 Ml Disp.Syrin) 30 mg SUBCUT DAILY [facility] Stop: 09/30/17 09:59 Last Admin: 09/04/17 11:30 Dose: 30 mg Sodium Chloride (Nacl 0.9% 1000 Ml Iv Soln) 1,000 mls @ 125 mls/hr IV CONTINUOUS PRN PRN Reason: THIS MED IS NOT "PRN" Stop: 09/29/17 17:38 Last Admin: 09/04/17 08:01 Dose: 125 mls/hr Clindamycin Phosphate/Dextrose (Cleocin Rtu 600 Mg/D5w 50 Ml Premix) 600 mg in 50 mls @ 50 mls/hr IV Q8A [facility] Stop: 09/09/17 09:59 Last Infusion: 09/04/17 12:32 Dose: Infused Ciprofloxacin/Dextrose (Cipro Rtu 400 Mg/D5w 200 Ml Premix Bag) 400 mg in 200 mls @ 200 mls/hr IV Q12@0300,1500 [facility] Stop: 09/11/17 14:59 Last Admin: 09/04/17 15:25 Dose: 200 mls/hr, 200 mls/hr Lactobacillus Acidophilus (Bacid 250 Mg Tablet) 500 mg PO BID [facility] Stop: 10/02/17 09:59 Last Admin: 09/04/17 11:29 Dose: 500 mg Metoclopramide HCl (Reglan Inj/Pf 10 Mg/2 Ml Sdv) 5 mg IV Q6HP PRN PRN Reason: FOR NAUSEA/VOMITING Stop: 10/03/17 07:53 Last Admin: 09/03/17 10:13 Dose: 5 mg Morphine Sulfate (Morphine 10 Mg/Ml Inj) 1 mg IV Q4HP PRN PRN Reason: FOR PAIN Stop: 09/07/17 05:56 Ondansetron HCl (Zofran Inj/Pf 4 Mg/2 Ml Sdv) 4 mg IV Q4HP PRN PRN Reason: FOR NAUSEA/VOMITING Stop: 09/29/17 17:38 Last Admin: 09/03/17 00:19 Dose: 4 mg Oxycodone HCl (Oxy-Ir 5 Mg Tablet) 5 mg PO Q6HP PRN PRN Reason: PAIN SCALE OF 2 Stop: 09/08/17 13:36 Last Admin: 09/03/17 21:30 Dose: 5 mg Sodium Bicarbonate (Sodium Bicarbonate 650 Mg Tablet) 650 mg PO Q12 [facility] Stop: 10/02/17 21:59 Last Admin: 09/04/17 11:30 Dose: 650 mg Sodium Chloride (Saline Flush 2.5 Ml Monoject Prefil Syrin) 2.5 ml IV Q8 [facility] Stop: 09/29/17 21:59 Last Admin: 09/04/17 13:48 Dose: Not Given - Allergies Allergies/Adverse Reactions: almond Allergy (Verified 08/30/17 13:34) cashew nut Allergy (Verified 08/30/17 13:34) - Diet/Activity Discharge Diet: As Tolerated Hospital Course Hospital Course: This patient presents to emergency room with complaints of weakness and falling at home. She was found to be hypotensive. Was found to have a necrotic purulent fungating left breast mass which is felt to be the source of infection. She had recently had a biopsy done prior to admission with a diagnosis of stage IV invasive ductal carcinoma of the left breast, ER/MI -, HER [address] shows possible metastasis to the lungs and a recent chest x-ray shows atelectasis and collapse of the left lung although patient's respiratory status has actually been stable. She was started on empiric intravenous Cipro, Zosyn and vancomycin and this has since been changed to Cipro and clindamycin with the culture yielding Pseudomonas species, E. coli, methicillin sensitive Staphylococcus aureus and gram-negative rods from the left breast. She is status post debridement of necrotic tissue of the left breast. Patient was in septic shock on initial admission and she had been on norepinephrine in addition to aggressive fluid hydration as well as antibiotics. She actually improved and norepinephrine was discontinued with stable blood pressure however today she is trending down again with systolic blood pressure around 90. She was found to be in acute kidney injury likely secondary to ATN on initial presentation with creatinine of 2.83 and this improved to 1.2 although trending back to 1.6 again today. Her white count also which was 19,000 and admission has trended down to 14.7 today. She is status post 3 units of packed red blood cell transfusion with hemoglobin rising from 7-10.4 today. She was also noted to have a left arm swelling no evidence of thromboembolism. Consolidations during this admission were oncology as well as surgery. Physical Exam Vital Signs: Temp Pulse Resp BP Pulse Ox 98.4 F 143 H 20 85/66 L 95 09/04/17 12:00 09/04/17 12:00 09/04/17 14:15 09/04/17 12:00 09/04/17 12:00 Intake & Output 09/03/17 09/04/17 09/05/17 06:59 06:59 06:59 Intake Total 5219 4265 1050 Output Total 985 175 15 Balance 4234 4090 1035 Weight 84.8 kg 88.7 kg General appearance: PRESENT: no acute distress, well-developed Head exam: PRESENT: atraumatic Ear exam: PRESENT: normal external ear exam Neck exam: PRESENT: full ROM. ABSENT: thyromegaly Respiratory exam: PRESENT: clear to auscultation luke, unlabored. ABSENT: accessory muscle use, rhonchi Cardiovascular exam: PRESENT: +S1, +S2, tachycardia GI/Abdominal exam: PRESENT: soft. ABSENT: ascites, diminished bowel sounds Extremities exam: ABSENT: calf tenderness, pedal edema Musculoskeletal exam: PRESENT: other - Necrotic left breast with open wound L upper extremity swelling Results Laboratory Results: 09/04/17 06:15 09/04/17 06:15 09/04/17 09/04/17 06:15 06:15 WBC 14.7 H RBC 3.82 Hgb 10.4 L Hct 32.0 L MCV 84 MCH 27.2 MCHC 32.4 RDW 16.9 H Plt Count 366 Seg Neutrophils % Not Reportable Lymphocytes % Not Reportable Monocytes % Not Reportable Eosinophils % Not Reportable Basophils % Not Reportable Absolute Neutrophils Not Reportable Absolute Lymphocytes Not Reportable Absolute Monocytes Not Reportable Absolute Eosinophils Not Reportable Absolute Basophils Not Reportable Sodium 137.6 Potassium 3.5 L Chloride 108 H Carbon Dioxide 21 L Anion Gap 9 BUN 30 H Creatinine 1.64 H Est GFR ( Amer) 38 L Est GFR (Non-Af Amer) 31 L Glucose 116 H Calcium 8.0 L 08/31/17 08/31/17 01:15 07:43 Troponin I < 0.012 0.012 Impressions: Abdomen/Pelvis CT 08/30/17 14:27 IMPRESSION: Mild ascites. Cholelithiasis. Chest CT 08/30/17 16:17 IMPRESSION: 1. Large soft tissue mass with gas foci at the left breast, probably corresponding to known malignancy, superimposed infection is not excludable. Satellite nodules at the left upper breast. Left axillary adenopathy, probably metastatic. Evaluation with PET/CT may be worthwhile. 2. Mediastinal adenopathy and ill defined soft tissue density at the left upper lobe, worrisome for metastatic disease. Consolidation/atelectasis at the left upper and lower lobes.Small loculated left pleural effusion. 3. Mild cardiomegaly. Trace pericardial effusion. Venous Doppler Study 09/02/17 00:00 IMPRESSION: NO EVIDENCE DVT OR SVT IN THE LEFT ARM. MUGA 09/03/17 00:00 IMPRESSION: NORMAL CARDIAC MUGA STUDY. NORMAL LEFT VENTRICULAR FUNCTION WITH VALUES ABOVE. Chest X-Ray 09/03/17 06:00 IMPRESSION: Left lung collapse. No significant change. Plan Discharge Plan: Transfer to [facility] under the care of Dr. Jordan Hagan when bed is available Time Spent: Greater than 30 Minutes
[2017-09-04] MEDS ORDERED: NOREPINEPHRINE BITARTRATE INJ/PF 4 MG/4 ML SDV IV ONE (23:06)
[2017-09-04] MEDS: DEXTROSE 5%-WATER 250 ML with NOREPINEPHRINE BITARTRATE 4 MG IV PRN ×2 (23:35)
--- NOTE | 2017-09-05 01:41 | PDOC PROGRESS REPORT ---
Subjective Reason For Visit: SEPSIS,NECROTIC,FUNGATING, AND INFECTED LEFT BREAS Physical Exam Vital Signs: Temp Pulse Resp BP Pulse Ox 99.1 F 143 H 21 H 93/69 L 95 09/04/17 19:46 09/04/17 12:00 09/04/17 19:35 09/04/17 19:35 09/04/17 12:00 Intake & Output 09/03/17 09/04/17 09/05/17 06:59 06:59 06:59 Intake Total 5219 4265 2300 Output Total 985 175 15 Balance 4234 4090 2285 Weight 84.8 kg 88.7 kg Results Laboratory Results: 09/04/17 06:15 09/04/17 06:15 09/04/17 09/04/17 06:15 06:15 WBC 14.7 H RBC 3.82 Hgb 10.4 L Hct 32.0 L MCV 84 MCH 27.2 MCHC 32.4 RDW 16.9 H Plt Count 366 Seg Neutrophils % Not Reportable Lymphocytes % Not Reportable Monocytes % Not Reportable Eosinophils % Not Reportable Basophils % Not Reportable Absolute Neutrophils Not Reportable Absolute Lymphocytes Not Reportable Absolute Monocytes Not Reportable Absolute Eosinophils Not Reportable Absolute Basophils Not Reportable Sodium 137.6 Potassium 3.5 L Chloride 108 H Carbon Dioxide 21 L Anion Gap 9 BUN 30 H Creatinine 1.64 H Est GFR ( Amer) 38 L Est GFR (Non-Af Amer) 31 L Glucose 116 H Calcium 8.0 L 08/31/17 08/31/17 01:15 07:43 Troponin I < 0.012 0.012 Impressions: Abdomen/Pelvis CT 08/30/17 14:27 IMPRESSION: Mild ascites. Cholelithiasis. Chest CT 08/30/17 16:17 IMPRESSION: 1. Large soft tissue mass with gas foci at the left breast, probably corresponding to known malignancy, superimposed infection is not excludable. Satellite nodules at the left upper breast. Left axillary adenopathy, probably metastatic. Evaluation with PET/CT may be worthwhile. 2. Mediastinal adenopathy and ill defined soft tissue density at the left upper lobe, worrisome for metastatic disease. Consolidation/atelectasis at the left upper and lower lobes.Small loculated left pleural effusion. 3. Mild cardiomegaly. Trace pericardial effusion. Venous Doppler Study 09/02/17 00:00 IMPRESSION: NO EVIDENCE DVT OR SVT IN THE LEFT ARM. MUGA 09/03/17 00:00 IMPRESSION: NORMAL CARDIAC MUGA STUDY. NORMAL LEFT VENTRICULAR FUNCTION WITH VALUES ABOVE. Chest X-Ray 09/03/17 06:00 IMPRESSION: Left lung collapse. No significant change. Assessment & Plan - Diagnosis (1) Breast mass, left Is this a current diagnosis for this admission?: Yes (2) Septic shock Is this a current diagnosis for this admission?: Yes - Plan Summary Plan Summary: This is a 66-year-old female with cancer of the left breast. The mass is causing necrosis of large portions of her breast tissue and chest wall. It is widely metastatic. She is septic from the necrotic breast mass. At this time, she is too sick for chemotherapy. Surgery is unlikely to be beneficial, due to the wide extent of the tumor. In my opinion, hospice is the most reasonable option. It is my understanding that the patient's family has requested transfer to a tertiary care center. I will see the patient again on an as- needed basis. Please renotify with any questions or concerns.
[2017-09-05] MEDS: CLINDAMYCIN 600 MG/D5W RTU 600 MG/50 ML RTUPB IV SCH ×3 (03:13→17:29)
[2017-09-05] MEDS: NORMAL SALINE 1000 ML 1,000 ML IV PRN ×2 (03:13→16:03)
[2017-09-05] MEDS: CIPROFLOXACIN 400 MG/D5W RTU 400 MG/200 ML RTUPB IV SCH ×2 (03:13→15:58)
[2017-09-05] MEDS ORDERED: NOREPINEPHRINE BITARTRATE INJ/PF 4 MG/4 ML SDV IV ONE ×2 (04:51→12:32)
[2017-09-05] MEDS: DEXTROSE 5%-WATER 250 ML with NOREPINEPHRINE BITARTRATE 4 MG IV PRN ×8 (05:40→22:07)
[2017-09-05] MEDS ORDERED: POTASSIUM CHLORIDE 10 MEQ CAPSULE.ER PO ONE (11:10)
[2017-09-05] MEDS: ASPIRIN 81 MG TABLET, ENT COATED PO SCH (15:32)
[2017-09-05] MEDS: DOCUSATE SODIUM 100 MG CAPSULE PO SCH ×2 (15:32→17:30)
[2017-09-05] MEDS: LACTOBACILLUS ACIDOPHILUS 250 MG TAB PO SCH ×2 (15:32→17:30)
[2017-09-05] MEDS ORDERED: METOPROLOL TARTRATE PF/INJ 5 MG/5 ML SDV IV ONE (15:40)
[2017-09-05] MEDS: SODIUM BICARBONATE 650 MG TABLET PO SCH ×2 (15:59→22:07)
[2017-09-05] MEDS: ENOXAPARIN SODIUM INJ 30 MG/0.3 ML DISP.SYRIN SUBCUT SCH (16:01)
[2017-09-05] MEDS: MORPHINE SULFATE 10 MG/ML INJ IV PRN ×2 (16:02→22:06)
--- NOTE | 2017-09-05 17:46 | PDOC PROGRESS REPORT ---
Subjective Progress Note for:: 09/05/17 Subjective:: She is noted to be hypotensive again and remains tachycardic Patient's condition is very poor and prognosis is very poor Was accepted to [facility] for transfer however there is no bed and she is awaiting transfer. Patient's condition is very tenuous though and I really doubt that she would last long and will be stable enough for transfer. With her poor condition I discussed with the family patient's ongoing status and the daughter decided to make a DNR. Patient has been made a DO NOT RESUSCITATE. Reason For Visit: SEPSIS,NECROTIC,FUNGATING, AND INFECTED LEFT BREAS Physical Exam Vital Signs: Temp Pulse Resp BP Pulse Ox 99.3 F 140 H 30 H 88/74 L 94 09/05/17 16:24 09/05/17 16:24 09/05/17 16:24 09/05/17 16:24 09/05/17 16:24 Intake & Output 09/04/17 09/05/17 09/06/17 06:59 06:59 06:59 Intake Total 4265 3680 1250 Output Total 175 25 0 Balance 4090 3655 1250 Weight 88.7 kg 90.6 kg Head exam: PRESENT: normocephalic Eye exam: PRESENT: conjunctiva pink, EOMI, PERRLA. ABSENT: scleral icterus Ear exam: PRESENT: normal external ear exam Mouth exam: PRESENT: moist, tongue midline Neck exam: ABSENT: carotid bruit, JVD, lymphadenopathy, thyromegaly Respiratory exam: PRESENT: clear to auscultation luke. ABSENT: rales, rhonchi, wheezes Cardiovascular exam: PRESENT: +S1, +S2, tachycardia. ABSENT: diastolic murmur, rubs, systolic murmur GI/Abdominal exam: PRESENT: normal bowel sounds, soft. ABSENT: distended, guarding, mass, organolmegaly, rebound, tenderness Rectal exam: PRESENT: deferred Extremities exam: ABSENT: calf tenderness, clubbing, pedal edema Musculoskeletal exam: PRESENT: other - Left breast necrotic mass Neurological exam: PRESENT: alert. ABSENT: motor sensory deficit Psychiatric exam: ABSENT: homicidal ideation, suicidal ideation Skin exam: PRESENT: other - Left breast necrotic mass. ABSENT: cyanosis Results Laboratory Results: 09/04/17 06:15 09/04/17 06:15 09/02/17 06:55 Breast - Left Gram Stain - Final 09/02/17 06:55 Breast - Left Wound Culture - Final Pseudomonas Species Escherichia Coli Staphylococcus Aureus Enterococcus Faecalis(Group D) Corynebacterium Species Prevotella Species 08/31/17 08/31/17 01:15 07:43 Troponin I < 0.012 0.012 Impressions: Abdomen/Pelvis CT 08/30/17 14:27 IMPRESSION: Mild ascites. Cholelithiasis. Chest CT 08/30/17 16:17 IMPRESSION: 1. Large soft tissue mass with gas foci at the left breast, probably corresponding to known malignancy, superimposed infection is not excludable. Satellite nodules at the left upper breast. Left axillary adenopathy, probably metastatic. Evaluation with PET/CT may be worthwhile. 2. Mediastinal adenopathy and ill defined soft tissue density at the left upper lobe, worrisome for metastatic disease. Consolidation/atelectasis at the left upper and lower lobes.Small loculated left pleural effusion. 3. Mild cardiomegaly. Trace pericardial effusion. Venous Doppler Study 09/02/17 00:00 IMPRESSION: NO EVIDENCE DVT OR SVT IN THE LEFT ARM. MUGA 09/03/17 00:00 IMPRESSION: NORMAL CARDIAC MUGA STUDY. NORMAL LEFT VENTRICULAR FUNCTION WITH VALUES ABOVE. Chest X-Ray 09/03/17 06:00 IMPRESSION: Left lung collapse. No significant change. Assessment & Plan - Diagnosis (1) Breast cancer Qualifiers: Laterality: left Is this a current diagnosis for this admission?: Yes (2) CHANA (acute kidney injury) Is this a current diagnosis for this admission?: Yes (3) Left arm swelling Is this a current diagnosis for this admission?: Yes (4) Septic shock Is this a current diagnosis for this admission?: Yes (5) Anemia Qualifiers: Chronic kidney disease stage: stage 3 (moderate) Is this a current diagnosis for this admission?: Yes (6) Hypotension Qualifiers: Hypotension type: other hypotension type Qualified Code(s): I95.89 - Other hypotension Is this a current diagnosis for this admission?: Yes (7) Primary cancer of left breast with metastasis to other site Is this a current diagnosis for this admission?: Yes (8) Tachycardia Is this a current diagnosis for this admission?: Yes - Time Time Spent with patient: 25-34 minutes Medications reviewed and adjusted accordingly: Yes Anticipated discharge: Tertiary Hospital - Inpatient Certification Based on my medical assessment, after consideration of the patient's comorbidities, presenting symptoms, or acuity I expect that the services needed warrant INPATIENT care.: Yes Medical Necessity: Need Close Monitoring Due to Risk of Patient Decompensation, Risk of Complication if Not Cared For in Hospital
[2017-09-06] MEDS: CLINDAMYCIN 600 MG/D5W RTU 600 MG/50 ML RTUPB IV SCH ×2 (01:39→12:21)
[2017-09-06] MEDS: NORMAL SALINE 1000 ML 1,000 ML IV PRN (02:36)
[2017-09-06] MEDS: CIPROFLOXACIN 400 MG/D5W RTU 400 MG/200 ML RTUPB IV SCH (03:49)
[2017-09-06] MEDS: DEXTROSE 5%-WATER 250 ML with NOREPINEPHRINE BITARTRATE 4 MG IV PRN ×2 (05:45)
--- NOTE | 2017-09-06 08:19 | PDOC PROGRESS REPORT ---
Subjective Progress Note for:: 09/06/17 Subjective:: Patient is sleeping peacefully and does not arouse to voice or touch. Daughter is at bedside. Nurses report no new issues overnight. Patient is on maximum dose Levophed. Her heart and respiratory rates are slowly decreasing. Reason For Visit: SEPSIS,NECROTIC,FUNGATING, AND INFECTED LEFT BREAS Physical Exam Vital Signs: Temp Pulse Resp BP Pulse Ox 97.7 F 140 H 14 69/50 L 90 L 09/06/17 04:29 09/05/17 20:00 09/06/17 06:27 09/06/17 06:27 09/06/17 06:27 Intake & Output 09/05/17 09/06/17 09/07/17 06:59 06:59 06:59 Intake Total 3680 3891 Output Total 25 40 Balance 3655 3851 Weight 90.6 kg 92.6 kg General appearance: PRESENT: no acute distress Head exam: PRESENT: normocephalic Respiratory exam: PRESENT: other - rattle. Cardiovascular exam: PRESENT: RRR, tachycardia Extremities exam: PRESENT: other - Marked edema in all 4 extremities. Neurological exam: ABSENT: alert, awake Skin exam: PRESENT: normal color Additional comments: I did not remove the breast wound dressing today, but the odor is much worse. Results Laboratory Results: 09/04/17 06:15 09/04/17 06:15 09/02/17 06:55 Breast - Left Gram Stain - Final 09/02/17 06:55 Breast - Left Wound Culture - Final Pseudomonas Species Escherichia Coli Staphylococcus Aureus Enterococcus Faecalis(Group D) Corynebacterium Species Prevotella Species 08/31/17 08/31/17 01:15 07:43 Troponin I < 0.012 0.012 Impressions: Abdomen/Pelvis CT 08/30/17 14:27 IMPRESSION: Mild ascites. Cholelithiasis. Chest CT 08/30/17 16:17 IMPRESSION: 1. Large soft tissue mass with gas foci at the left breast, probably corresponding to known malignancy, superimposed infection is not excludable. Satellite nodules at the left upper breast. Left axillary adenopathy, probably metastatic. Evaluation with PET/CT may be worthwhile. 2. Mediastinal adenopathy and ill defined soft tissue density at the left upper lobe, worrisome for metastatic disease. Consolidation/atelectasis at the left upper and lower lobes.Small loculated left pleural effusion. 3. Mild cardiomegaly. Trace pericardial effusion. Venous Doppler Study 09/02/17 00:00 IMPRESSION: NO EVIDENCE DVT OR SVT IN THE LEFT ARM. MUGA 09/03/17 00:00 IMPRESSION: NORMAL CARDIAC MUGA STUDY. NORMAL LEFT VENTRICULAR FUNCTION WITH VALUES ABOVE. Chest X-Ray 09/03/17 06:00 IMPRESSION: Left lung collapse. No significant change. Assessment & Plan - Diagnosis (1) Breast cancer Qualifiers: Laterality: left Is this a current diagnosis for this admission?: Yes (2) Anemia Qualifiers: Chronic kidney disease stage: stage 3 (moderate) Is this a current diagnosis for this admission?: Yes (3) Septic shock Is this a current diagnosis for this admission?: Yes (4) Left arm swelling Is this a current diagnosis for this admission?: Yes - Plan Summary Plan Summary: I understand that [facility] has accepted her in transfer, but no beds are available at this time. However, I am unsure if patient will live long enough to be transferred. Daughter is aware of my concerns. Patient is now DNR, however, family requests continuing antibiotics, IV fluids, and pressers. Her urine output has markedly decreased. She appears comfortable at this time.
[2017-09-06] MEDS: MORPHINE SULFATE 10 MG/ML INJ IV PRN (09:03)
[2017-09-06] MEDS ORDERED: MORPHINE SULFATE 10 MG/ML INJ IV PRN (11:30)
[2017-09-06] MEDS: DOCUSATE SODIUM 100 MG CAPSULE PO SCH (12:21)
[2017-09-06] MEDS: SODIUM BICARBONATE 650 MG TABLET PO SCH (12:21)
[2017-09-06] MEDS: ENOXAPARIN SODIUM INJ 30 MG/0.3 ML DISP.SYRIN SUBCUT SCH (12:21)
[2017-09-06] MEDS: ASPIRIN 81 MG TABLET, ENT COATED PO SCH (12:21)
[2017-09-06] MEDS: LACTOBACILLUS ACIDOPHILUS 250 MG TAB PO SCH (12:21)
[2017-09-06 14:53] VITALS: BP 41/24
--- NOTE | 2017-09-06 16:04 | Death Summary ---
Summary Date : 09/06/17 Time of :: 13:30 Resuscitation Status: Do Not Resuscitate Primary Care Provider: Magalis Ornelas Consulting Provider: General surgery. Oncology - Final Diagnosis (1) Septic shock Is this a current diagnosis for this admission?: Yes (2) Breast cancer Is this a current diagnosis for this admission?: Yes (3) CHANA (acute kidney injury) Is this a current diagnosis for this admission?: Yes (4) Anemia Is this a current diagnosis for this admission?: Yes (5) Hypotension Is this a current diagnosis for this admission?: Yes (6) Primary cancer of left breast with metastasis to other site Is this a current diagnosis for this admission?: Yes (7) Tachycardia Is this a current diagnosis for this admission?: Yes (8) Left arm swelling Is this a current diagnosis for this admission?: Yes Hospital Course:: This patient was recently diagnosed with inflammatory breast cancer presented to the emergency room with weakness nausea and difficulty breathing. She was found to be septic shock as her necrotic Breast wound was infected. The had a wound debridement done with wound culture yielded multiple organisms. Patient was maintained in the ICU throughout her hospital stay. CT scan done revealed possible lung metastases. She subsequently developed anemia as well as acute kidney failure. Patient remains septic and at one point with family requesting transfer to [facility] this was under consideration however patient continued to deteriorate and she was made a DNR. She ultimately succumbed and at 1330 today with family at bedside.
== END 2017-09-06 15:15 | DRG 853 ==
LOC: ER 13:30 → EH 18:52 → ICU 08-31 05:06
PROVIDERS: ADMIT Internal Medicine; ATTEND Internal Medicine
PROC: 02HV33Z Insertion of Infusion Device into Superior Vena Cava, Percutaneous Approach (ICD-10-PCS; 2017-08-31)
PROC: 30233N1 Transfusion of Nonautologous Red Blood Cells into Peripheral Vein, Percutaneous Approach (ICD-10-PCS; 2017-08-31)
PROC: 0HBU0ZZ Excision of Left Breast, Open Approach (ICD-10-PCS; principal; 2017-09-02)
DX: A41.89 Other specified sepsis (principal); R65.21 Severe sepsis with septic shock; N17.0 Acute kidney failure with tubular necrosis; C78.00 Secondary malignant neoplasm of unspecified lung; E87.1 Hypo-osmolality and hyponatremia; C50.912 Malignant neoplasm of unspecified site of left female breast; Z66 Do not resuscitate; L89.152 Pressure ulcer of sacral region, stage 2; F50.89 Other specified eating disorder; I12.9 Hypertensive chronic kidney disease with stage 1 through stage 4 chronic kidney disease, or unspecified chronic kidney disease; N18.3 Chronic kidney disease, stage 3 (moderate); D63.1 Anemia in chronic kidney disease; I89.0 Lymphedema, not elsewhere classified; R00.0 Tachycardia, unspecified; B96.20 Unspecified Escherichia coli [E. coli] as the cause of diseases classified elsewhere; B96.5 Pseudomonas (aeruginosa) (mallei) (pseudomallei) as the cause of diseases classified elsewhere; B95.61 Methicillin susceptible Staphylococcus aureus infection as the cause of diseases classified elsewhere; B95.2 Enterococcus as the cause of diseases classified elsewhere; B96.89 Other specified bacterial agents as the cause of diseases classified elsewhere
CPT/HCPCS: 36415; 36430; 51702; 71045; 71250; 74176; 78472; 80048; 80053; 81001; 82272; 82607; 82728; 82746; 82803; 83540; 83550; 83605; 83690; 83735; 83930; 83935; 84100; 84484; 85025; 85045; 85610; 86850; 86900; 86901; 86920; 87040; 87070; 87075; 87077; 87086; 87186; 87205; 93005; 93010; 93971; 94640; 94799; 96361; 96365; 96367; 96368; 99291; A9538; J0744; J1650; J1720; J2270; J2405; J2543; J2765; J3370; J3490; J7030; J7050; J7060; J7120; P9016